=== PATIENT | male | born 1975 | race Caucasian/White ===

== ENCOUNTER 2018-03-19 18:52 | Emergency (ER) | payer OTHER, MEDICAID ==
[~2018-03-19] VITALS: Ht 175.3 cm; Wt 66.4 kg
[~2018-03-19 18:52] MED LIST: DIVA-78 PO; FEXO-58 PO; FLUT16H NASAL; LISI-661 PO; METF-960 PO; OLAN10TA6 PO; PANT40TA25 PO; SIMV-259 PO
[2018-03-19 19:02] VITALS: BP 131/85
[2018-03-19 19:19] LABS: GLUCOSE,POINT OF CARE 119 MG/DL (70-110)
== END 2018-03-19 21:00 | disposition left against medical advice (07) ==
LOC: EMS 18:53
DX: R06.02 Shortness of breath (principal); E11.9 Type 2 diabetes mellitus without complications; F20.9 Schizophrenia, unspecified; F32.9 Major depressive disorder, single episode, unspecified; Z87.891 Personal history of nicotine dependence; Z53.21 Procedure and treatment not carried out due to patient leaving prior to being seen by health care provider

== ENCOUNTER 2018-03-20 03:57 | Emergency (ER) | payer OTHER, MEDICAID ==
[~2018-03-20] VITALS: Ht 170.2 cm; Wt 63.6 kg
[~2018-03-20 03:57] MED LIST changes: -DIVA-78 PO; -LISI-661 PO; -METF-960 PO; -PANT40TA25 PO; -SIMV-259 PO
[2018-03-20 04:12] VITALS: BP 143/78
== END 2018-03-20 04:50 | disposition left against medical advice (07) ==
LOC: EMS 03:58
DX: Z53.21 Procedure and treatment not carried out due to patient leaving prior to being seen by health care provider (principal)

== ENCOUNTER 2018-05-18 22:51 | Emergency (ER) | payer OTHER ==
[~2018-05-18] VITALS: Ht 177.8 cm; Wt 67.7 kg
[2018-05-18 22:53] VITALS: BP 110/69
[2018-05-18] MEDS ORDERED: DIVA-78 PO (23:06)
[2018-05-18] MEDS ORDERED: METF-960 PO (23:06)
[2018-05-18] MEDS ORDERED: ARIP10TA8 PO (23:06)
[2018-05-18 23:08] LABS: GLUCOSE,POINT OF CARE 94 MG/DL (70-110)
== END 2018-05-18 23:35 | disposition home or self-care (01) ==
LOC: EMS 22:51
DX: G47.00 Insomnia, unspecified (principal); E11.9 Type 2 diabetes mellitus without complications; F20.9 Schizophrenia, unspecified; F32.9 Major depressive disorder, single episode, unspecified; Z87.891 Personal history of nicotine dependence; Z79.84 Long term (current) use of oral hypoglycemic drugs

== ENCOUNTER 2019-02-14 12:12 | Inpatient (IN) | payer MEDICARE, MEDICAID ==
[~2019-02-14] VITALS: Ht 167.6 cm; Wt 70.4 kg
[~2019-02-14 12:12] MED LIST changes: +ARIP10TA8 PO; +DIVA-78 PO; -FEXO-58 PO; -FLUT16H NASAL; +METF-960 PO; -OLAN10TA6 PO
[2019-02-14 12:27] VITALS: BP 110/74
[2019-02-14] MEDS ORDERED: FAMO20 PO (12:31)
[2019-02-14] MEDS ORDERED: LORA10TA7 PO (12:31)
[2019-02-14] MEDS ORDERED: DIVA-78 PO (12:31)
[2019-02-14] MEDS ORDERED: OLAN7.5T2 PO (12:31)
[2019-02-14] MEDS ORDERED: LORazepam 2 MG TABLET PO PRN (12:45)
[2019-02-14] MEDS ORDERED: HALOPERIDOL 5 MG TABLET PO PRN (12:45)
[2019-02-14] MEDS ORDERED: ZOLPIDEM TARTRATE 10 MG TABLET PO PRN (12:45)
[2019-02-14] MEDS ORDERED: PNEUMOCOCCAL VACCINE POLYVALENT 0.5 ML VIAL [PPSV23] IM ONE (13:45)
[2019-02-14 13:48] VITALS: BP 125/74
[2019-02-14 13:50] VITALS: BP 125/74
[2019-02-14 16:06] VITALS: BP 120/82
[2019-02-15 02:17] VITALS: BP 108/77
[2019-02-15 08:20] LABS: BASOPHILS % (AUTO) 0.5 % (0.0-2.0); HEMATOCRIT 45.6 % (41-53); HEMOGLOBIN 15.6 g/dL (13.5-17.5); LYMPHOCYTES # (AUTO) 1.3 K/uL (1.0-4.8); LYMPHOCYTES % (AUTO) 27.2 % (22.0-44.0); MEAN CORPUSCULAR HEMOGLOBIN 31.8 pg (26.0-34.0); MEAN CORPUSCULAR HGB CONC 34.2 G/dL (31.0-37.0); MEAN CORPUSCULAR VOLUME 93 fL (80-100); MONOCYTES # (AUTO) 0.3 K/uL (0.1-1.0); MONOCYTES % (AUTO) 5.5 % (2.0-9.0); NEUTROPHILS # (AUTO) 3.3 K/uL (1.8-7.7); NEUTROPHILS % (AUTO) 65.8 % (40.0-70.0); PLATELET COUNT (AUTO) 178 K/uL (150-450); RED BLOOD CELL COUNT(AUTO) 4.91 MIL/uL (4.50-5.90); RED CELL DISTRIBUTION WIDTH 12.1 % (11.5-14.5)
[2019-02-15 08:46] VITALS: BP 104/78
[2019-02-15 08:49] LABS: AMPHET/METH SCREEN,URINE NEGATIVE (NEGATIVE); BARBITURATE SCREEN, URINE NEGATIVE (NEGATIVE); BENZODIAZEPINES SCREEN,URINE NEGATIVE (NEGATIVE); CANNABINOID SCREEN,URINE NEGATIVE (NEGATIVE); COCAINE SCREEN,URINE NEGATIVE (NEGATIVE); METHADONE SCREEN, URINE NEGATIVE (NEGATIVE); OPIATE SCREEN,URINE NEGATIVE (NEGATIVE)
[2019-02-15 08:50] LABS: PHENCYCLIDINE SCREEN,URINE NEGATIVE (NEGATIVE)
[2019-02-15 08:50] LABS: ALANINE AMINOTRANSFERASE 14 U/L (12-78); ALKALINE PHOSPHATASE 51 U/L (46-116); ANION GAP 7 mmol/L (8-16); ASPARTATE AMINOTRANSFERASE 20 U/L (15-37); BILIRUBIN,TOTAL 1.4 mg/dL (0.1-1.0); CALCIUM, TOTAL 9.6 mg/dL (8.8-10.5); CARBON DIOXIDE 31 mmol/L (22-29); CHLORIDE 103 mmol/L (98-107); CHOL/HDL RATIO 4.3 (4.2-7.3); CHOLESTEROL 217 mg/dL (131-200); CREATININE 0.76 mg/dL (0.60-1.30); FREE T4 (FREE THYROXINE) 1.21 ng/dL (0.76-1.46); GLOMERULAR FILTR. RATE CALC > 60 mL/min (>60); GLUCOSE,RANDOM 72 mg/dL (70-110); HDL CHOLESTEROL 51 mg/dL (40-60); LDL CHOL (CALC.) 149 mg/dL (0-130); POTASSIUM 4.4 mmol/L (3.5-5.1); SODIUM SERUM 141 mmol/L (136-145); THYROID STIMULATING HORMONE 2.45 uIU/mL (0.36-3.74); TOTAL PROTEIN, SERUM 6.9 g/dL (6.4-8.2); TRIGLYCERIDES 85 mg/dL (15-150)
[2019-02-15 08:57] LABS: UREA NITROGEN, BLOOD 6 mg/dL (7-18)
[2019-02-15 09:06] LABS: APPEARANCE,URINE CLEAR (CLEAR); BILIRUBIN,URINE NEGATIVE (NEGATIVE); GLUCOSE, URINE (UA) NEGATIVE (NEGATIVE); KETONES,URINE NEGATIVE (NEGATIVE); LEUKOCYTE ESTERASE ,URINE NEGATIVE (NEGATIVE); NITRATE,URINE NEGATIVE (NEGATIVE); OCCULT BLOOD,URINE NEGATIVE (NEGATIVE); PROTEIN,URINE NEGATIVE (NEGATIVE); UROBILINOGEN,URINE 0.2 mg/dL (<=1.0)
[2019-02-15] MEDS ORDERED: DIVALPROEX SODIUM 500 MG DR TABLET PO SCH (12:15)
[2019-02-15] MEDS ORDERED: IBUPROFEN 400 MG TABLET PO PRN (13:30)
[2019-02-15] MEDS ORDERED: ONDANSETRON HCL 4 MG TABLET PO PRN (13:30)
[2019-02-15] MEDS ORDERED: ACETAMINOPHEN 325 MG TABLET PO PRN (13:30)
[2019-02-15] MEDS ORDERED: DOCUSATE SODIUM 100 MG CAPSULE PO PRN (13:30)
[2019-02-15] MEDS ORDERED: LOPERAMIDE HCL 2 MG CAPSULE PO PRN (13:30)
[2019-02-15] MEDS ORDERED: ALBUTEROL SULFATE HFA 90 MCG/PUFF 8 GM INHALER IH PRN (13:30)
[2019-02-15] MEDS ORDERED: MAGNESIUM HYDROXIDE SUSPENSION 30 ML UDCUP PO PRN (13:30)
[2019-02-15] MEDS ORDERED: CloNIDine HCL 0.1 MG TABLET PO PRN (13:30)
[2019-02-15] MEDS ORDERED: PETROLATUM,WHITE 28 GM JELLY TP PRN (13:30)
[2019-02-15] MEDS ORDERED: GuaiFENesin/D-METHORPHAN [SUGAR-FREE] 200-20MG/10 ML SYRUP UDCUP PO PRN (13:30)
[2019-02-15] MEDS ORDERED: NICOTINE 14 MG/24 HOUR PATCH TD PRN (13:30)
[2019-02-15 16:15] VITALS: BP 116/79
[2019-02-15] MEDS: DIVALPROEX SODIUM 500 MG DR TABLET PO SCH (17:05)
[2019-02-15] MEDS: OLANZapine 10 MG TABLET PO SCH (20:31)
[2019-02-16 06:26] VITALS: BP 101/77
[2019-02-16 08:11] VITALS: BP 113/66
[2019-02-16] MEDS: DIVALPROEX SODIUM 500 MG DR TABLET PO SCH ×2 (08:13→16:33)
[2019-02-16] MEDS: LORATADINE 10 MG TABLET PO SCH (08:13)
[2019-02-16 16:00] VITALS: BP 125/75
[2019-02-16] MEDS: OLANZapine 10 MG TABLET PO SCH (20:35)
[2019-02-17 06:15] VITALS: BP 132/78
[2019-02-17] MEDS: DIVALPROEX SODIUM 500 MG DR TABLET PO SCH ×2 (08:09→16:25)
[2019-02-17] MEDS: LORATADINE 10 MG TABLET PO SCH (08:09)
[2019-02-17 08:28] VITALS: BP 111/73
[2019-02-17 16:10] VITALS: BP 109/74
[2019-02-17] MEDS: MAG HYDROX/AL HYDROX/SIMETH ES 30 ML SUSPENSION UDCUP PO PRN (17:44)
[2019-02-17] MEDS: OLANZapine 10 MG TABLET PO SCH (20:05)
[2019-02-18 05:13] VITALS: BP 117/71
[2019-02-18] MEDS: DIVALPROEX SODIUM 500 MG DR TABLET PO SCH ×2 (08:35→16:29)
[2019-02-18] MEDS: LORATADINE 10 MG TABLET PO SCH (08:35)
[2019-02-18 08:47] VITALS: BP 109/67
[2019-02-18 16:07] VITALS: BP 114/86
[2019-02-18] MEDS: OLANZapine 10 MG TABLET PO SCH (20:31)
[2019-02-19 06:28] VITALS: BP 120/81
[2019-02-19 08:11] VITALS: BP 104/77
[2019-02-19] MEDS: DIVALPROEX SODIUM 500 MG DR TABLET PO SCH ×2 (08:31→16:34)
[2019-02-19] MEDS: LORATADINE 10 MG TABLET PO SCH (09:19)
[2019-02-19 16:13] VITALS: BP 115/72
[2019-02-19] MEDS: OLANZapine 10 MG TABLET PO SCH (20:30)
[2019-02-20 05:50] VITALS: BP 112/70
[2019-02-20 08:22] VITALS: BP 112/75
[2019-02-20] MEDS: LORATADINE 10 MG TABLET PO SCH (08:31)
[2019-02-20] MEDS: DIVALPROEX SODIUM 500 MG DR TABLET PO SCH ×2 (08:31→17:07)
[2019-02-20] MEDS ORDERED: SENNA/DOCUSATE SODIUM 8.6-50 MG TABLET PO PRN (12:30)
[2019-02-20 16:18] VITALS: BP 113/68
[2019-02-20] MEDS: OLANZapine 10 MG TABLET PO SCH (20:34)
[2019-02-21 05:45] VITALS: BP 116/74
[2019-02-21 08:11] VITALS: BP 116/77
[2019-02-21] MEDS: DIVALPROEX SODIUM 500 MG DR TABLET PO SCH ×2 (08:20→16:32)
[2019-02-21] MEDS: LORATADINE 10 MG TABLET PO SCH (09:53)
[2019-02-21 16:09] VITALS: BP 102/75
[2019-02-21] MEDS: OLANZapine 10 MG TABLET PO SCH (20:37)
[2019-02-22 06:43] VITALS: BP 117/73
[2019-02-22] MEDS: DIVALPROEX SODIUM 500 MG DR TABLET PO SCH ×2 (08:08→16:37)
[2019-02-22 08:14] VITALS: BP 120/75
[2019-02-22] MEDS: LORATADINE 10 MG TABLET PO SCH (09:16)
[2019-02-22] MEDS ORDERED: OLAN10TA3 PO (10:37)
[2019-02-22] MEDS ORDERED: DIVA-78 PO (10:37)
[2019-02-22] MEDS: MAG HYDROX/AL HYDROX/SIMETH ES 30 ML SUSPENSION UDCUP PO PRN (12:50)
[2019-02-22 16:07] VITALS: BP 116/69
[2019-02-22] MEDS: OLANZapine 10 MG TABLET PO SCH (20:32)
[2019-02-23 06:37] VITALS: BP 124/75
[2019-02-23 08:21] VITALS: BP 106/74
[2019-02-23] MEDS: DIVALPROEX SODIUM 500 MG DR TABLET PO SCH (08:42)
[2019-02-23] MEDS: LORATADINE 10 MG TABLET PO SCH (09:32)
== END 2019-02-23 12:58 | disposition home or self-care (01) | DRG 885 ==
LOC: B2X 12:48
PROC: 3E0234Z Introduction of Serum, Toxoid and Vaccine into Muscle, Percutaneous Approach (ICD-10-PCS; principal; 2019-02-14)
DX: F20.0 Paranoid schizophrenia (principal); Z88.1 Allergy status to other antibiotic agents; K21.9 Gastro-esophageal reflux disease without esophagitis; E11.9 Type 2 diabetes mellitus without complications; E78.5 Hyperlipidemia, unspecified; J30.9 Allergic rhinitis, unspecified; Z23 Encounter for immunization; Z91.010 Allergy to peanuts; Z91.018 Allergy to other foods; Z79.899 Other long term (current) drug therapy
CPT/HCPCS: 83036; 84439; 84443; 90732

== ENCOUNTER 2019-07-07 15:52 | Inpatient (IN) | payer OTHER, MEDICAID ==
[~2019-07-07] VITALS: Ht 172.7 cm; Wt 68.5 kg
[~2019-07-07 15:52] MED LIST changes: -ARIP10TA8 PO; +LORA10TA7 PO; -METF-960 PO; +OLAN10TA3 PO
[2019-07-07 18:49] LABS: EOSINOPHILS % (AUTO) 1.2 % (1.0-6.0); HEMOGLOBIN 14.8 g/dL (13.5-17.5); LYMPHOCYTES # (AUTO) 1.7 K/uL (1.0-4.8); LYMPHOCYTES % (AUTO) 41.5 % (22.0-44.0); MEAN CORPUSCULAR HEMOGLOBIN 31.6 pg (26.0-34.0); MEAN CORPUSCULAR HGB CONC 34.5 G/dL (31.0-37.0); MEAN CORPUSCULAR VOLUME 92 fL (80-100); MONOCYTES # (AUTO) 0.3 K/uL (0.1-1.0); MONOCYTES % (AUTO) 7.3 % (2.0-9.0); NEUTROPHILS # (AUTO) 2.1 K/uL (1.8-7.7); PLATELET COUNT (AUTO) 165 K/uL (150-450); RED BLOOD CELL COUNT(AUTO) 4.69 MIL/uL (4.50-5.90); RED CELL DISTRIBUTION WIDTH 12.5 % (11.5-14.5)
[2019-07-07 18:57] LABS: AMPHET/METH SCREEN,URINE NEGATIVE (NEGATIVE); BARBITURATE SCREEN, URINE NEGATIVE (NEGATIVE); BENZODIAZEPINES SCREEN,URINE NEGATIVE (NEGATIVE); CANNABINOID SCREEN,URINE NEGATIVE (NEGATIVE); COCAINE SCREEN,URINE NEGATIVE (NEGATIVE); METHADONE SCREEN, URINE NEGATIVE (NEGATIVE); OPIATE SCREEN,URINE NEGATIVE (NEGATIVE)
[2019-07-07 19:00] LABS: ANION GAP 7 mmol/L (8-16); CALCIUM, TOTAL 8.7 mg/dL (8.8-10.5); CARBON DIOXIDE 30 mmol/L (22-29); CHLORIDE 103 mmol/L (98-107); CREATININE 0.89 mg/dL (0.60-1.30); GLOMERULAR FILTR. RATE CALC > 60 mL/min (>60); GLUCOSE,RANDOM 100 mg/dL (70-110); SODIUM SERUM 140 mmol/L (136-145); UREA NITROGEN, BLOOD 5 mg/dL (7-18)
[2019-07-07 19:05] LABS: PHENCYCLIDINE SCREEN,URINE NEGATIVE (NEGATIVE)
[2019-07-07 19:06] LABS: ALANINE AMINOTRANSFERASE 18 U/L (12-78); ALBUMIN 3.7 g/dL (3.4-5.0); ALKALINE PHOSPHATASE 52 U/L (46-116); ASPARTATE AMINOTRANSFERASE 10 U/L (15-37); BILIRUBIN,TOTAL 0.5 mg/dL (0.1-1.0); TOTAL PROTEIN, SERUM 6.5 g/dL (6.4-8.2)
[2019-07-07 20:44] LABS: VALPROIC ACID 73 mcg/mL (50-100)
[2019-07-07] MEDS ORDERED: HALOPERIDOL 5 MG TABLET PO PRN (21:00)
[2019-07-07] MEDS ORDERED: ZOLPIDEM TARTRATE 10 MG TABLET PO PRN (21:00)
[2019-07-07] MEDS ORDERED: LORazepam 2 MG TABLET PO PRN (21:00)
[2019-07-08 01:48] VITALS: BP 139/90
[2019-07-08 02:02] VITALS: BP 139/90
[2019-07-08] MEDS ORDERED: INFLUENZA VIRUS VACCINE QVS 2019-20 (3YR+)/PF 60 MCG/0.5 ML SYRINGE IM ONE (03:45)
[2019-07-08] MEDS ORDERED: NICOTINE 14 MG/24 HOUR PATCH TD PRN (08:15)
[2019-07-08] MEDS ORDERED: ACETAMINOPHEN 325 MG TABLET PO PRN (08:15)
[2019-07-08] MEDS ORDERED: MAGNESIUM HYDROXIDE SUSPENSION 30 ML UDCUP PO PRN (08:15)
[2019-07-08] MEDS ORDERED: LOPERAMIDE HCL 2 MG CAPSULE PO PRN (08:15)
[2019-07-08] MEDS ORDERED: MAG HYDROX/AL HYDROX/SIMETH ES 30 ML SUSPENSION UDCUP PO PRN (08:15)
[2019-07-08] MEDS ORDERED: DOCUSATE SODIUM 100 MG CAPSULE PO PRN (08:15)
[2019-07-08] MEDS ORDERED: ALBUTEROL SULFATE HFA 90 MCG/PUFF 8 GM INHALER IH PRN (08:15)
[2019-07-08] MEDS ORDERED: IBUPROFEN 400 MG TABLET PO PRN (08:15)
[2019-07-08] MEDS ORDERED: PETROLATUM,WHITE 28 GM JELLY TP PRN (08:15)
[2019-07-08] MEDS ORDERED: CloNIDine HCL 0.1 MG TABLET PO PRN (08:15)
[2019-07-08] MEDS ORDERED: ONDANSETRON HCL 4 MG TABLET PO PRN (08:15)
[2019-07-08] MEDS ORDERED: GuaiFENesin/D-METHORPHAN [SUGAR-FREE] 200-20MG/10 ML SYRUP UDCUP PO PRN (08:15)
[2019-07-08] MEDS: LORATADINE 10 MG TABLET PO SCH (09:55)
[2019-07-08 10:04] VITALS: BP 126/80
[2019-07-08 10:06] VITALS: BP 126/80
[2019-07-08 10:55] LABS: CHOL/HDL RATIO 3.5 (4.2-7.3)
[2019-07-08] MEDS ORDERED: LORA-575 PO (15:33)
[2019-07-08] MEDS: DIVALPROEX SODIUM 500 MG DR TABLET PO SCH (20:20)
[2019-07-08] MEDS: OLANZapine 7.5 MG TABLET PO SCH (20:20)
[2019-07-08 21:15] VITALS: BP 111/79
[2019-07-09 07:32] LABS: HEMOGLOBIN A1C 4.9 % (4.5-6.2)
[2019-07-09 07:56] LABS: CHOL/HDL RATIO 3.6 (4.2-7.3); THYROID STIMULATING HORMONE 1.33 uIU/mL (0.36-3.74)
[2019-07-09] MEDS: LORATADINE 10 MG TABLET PO SCH (08:28)
[2019-07-09] MEDS: DIVALPROEX SODIUM 500 MG DR TABLET PO SCH ×2 (08:28→20:28)
[2019-07-09 09:30] VITALS: BP 101/70
[2019-07-09 16:35] VITALS: BP 101/70
[2019-07-09] MEDS: OLANZapine 7.5 MG TABLET PO SCH (20:28)
[2019-07-10 09:00] VITALS: BP 132/70
[2019-07-10] MEDS: LORATADINE 10 MG TABLET PO SCH (09:22)
[2019-07-10] MEDS: DIVALPROEX SODIUM 500 MG DR TABLET PO SCH (09:22)
[2019-07-10] MEDS ORDERED: DIVA-78 PO (16:47)
== END 2019-07-10 18:00 | disposition home or self-care (01) | DRG 885 ==
LOC: EMS 15:55 → 3EX 21:00
DX: F20.0 Paranoid schizophrenia (principal); R45.851 Suicidal ideations; D72.819 Decreased white blood cell count, unspecified; E11.9 Type 2 diabetes mellitus without complications; Z91.010 Allergy to peanuts; Z88.8 Allergy status to other drugs, medicaments and biological substances; Z91.018 Allergy to other foods; J30.9 Allergic rhinitis, unspecified; K21.9 Gastro-esophageal reflux disease without esophagitis; Z79.899 Other long term (current) drug therapy; Z87.891 Personal history of nicotine dependence; Z91.5 Personal history of self-harm
CPT/HCPCS: 83036; 84443; G0378; G0480

== ENCOUNTER 2020-02-28 14:31 | Emergency (ER) | payer OTHER ==
[~2020-02-28] VITALS: Ht 177.8 cm; Wt 70.5 kg
[~2020-02-28 14:31] MED LIST changes: +DIVA-112 PO; -DIVA-78 PO; +LORA-575 PO; -LORA10TA7 PO
[2020-02-28] MEDS ORDERED: CETI-450 PO (14:37)
[2020-02-28] MEDS ORDERED: ASEN5TAB6 SL (14:37)
[2020-02-28] MEDS ORDERED: FAMO20 PO (14:37)
[2020-02-28] MEDS ORDERED: PB/HYOSCY/ATR/SCOP/LIDO/MAALOX 55 ML BOTTLE PO ONE (15:30)
[2020-02-28 15:55] VITALS: BP 107/72
[2020-02-28 19:25] LABS: GLUCOSE,POINT OF CARE 106 MG/DL (70-110)
== END 2020-02-28 16:01 | disposition home or self-care (01) ==
LOC: EMS 14:32
DX: K21.9 Gastro-esophageal reflux disease without esophagitis (principal); F32.9 Major depressive disorder, single episode, unspecified; E11.9 Type 2 diabetes mellitus without complications; F20.9 Schizophrenia, unspecified; Z87.891 Personal history of nicotine dependence

== ENCOUNTER 2020-05-26 17:11 | Emergency (ER) | payer OTHER ==
[~2020-05-26] VITALS: Ht 177.8 cm; Wt 70.9 kg
[~2020-05-26 17:11] MED LIST changes: +ASEN5TAB6 SL; +CETI-450 PO; +FAMO20 PO; -LORA-575 PO
[2020-05-26 18:03] LABS: GLUCOSE,POINT OF CARE 92 MG/DL (70-110)
[2020-05-26 20:09] VITALS: BP 122/76
== END 2020-05-26 21:07 | disposition home or self-care (01) ==
LOC: EMS 17:15
DX: F20.9 Schizophrenia, unspecified (principal); F32.9 Major depressive disorder, single episode, unspecified; Z87.891 Personal history of nicotine dependence; E11.9 Type 2 diabetes mellitus without complications

== ENCOUNTER 2020-08-13 16:20 | Inpatient (IN) | payer MEDICARE, MEDICAID ==
[~2020-08-13] VITALS: Ht 172.7 cm; Wt 62.0 kg
[~2020-08-13 16:20] MED LIST changes: -ASEN5TAB6 SL; +ASEN5TAB8 SL
[2020-08-13] MEDS ORDERED: HALOPERIDOL 5 MG TABLET PO ONE (18:30)
[2020-08-13] MEDS ORDERED: LORazepam 1 MG TABLET PO ONE (18:30)
[2020-08-13 18:53] LABS: BASOPHILS % (AUTO) 0.3 % (0.0-2.0); EOSINOPHILS % (AUTO) 0.1 % (1.0-6.0); HEMATOCRIT 45.3 % (41-53); HEMOGLOBIN 15.6 g/dL (13.5-17.5); LYMPHOCYTES # (AUTO) 1.2 K/uL (1.0-4.8); LYMPHOCYTES % (AUTO) 13.5 % (22.0-44.0); MEAN CORPUSCULAR HEMOGLOBIN 31.6 pg (26.0-34.0); MEAN CORPUSCULAR HGB CONC 34.5 G/dL (31.0-37.0); MEAN CORPUSCULAR VOLUME 91 fL (80-100); MONOCYTES # (AUTO) 0.8 K/uL (0.1-1.0); MONOCYTES % (AUTO) 8.3 % (2.0-9.0); NEUTROPHILS # (AUTO) 7.1 K/uL (1.8-7.7); NEUTROPHILS % (AUTO) 77.8 % (40.0-70.0); PLATELET COUNT (AUTO) 197 K/uL (150-450); RED BLOOD CELL COUNT(AUTO) 4.96 MIL/uL (4.50-5.90); RED CELL DISTRIBUTION WIDTH 12.6 % (11.5-14.5)
[2020-08-13 19:02] LABS: ANION GAP 10 mmol/L (8-16); CALCIUM, TOTAL 9.3 mg/dL (8.8-10.5); CARBON DIOXIDE 26 mmol/L (22-29); CHLORIDE 104 mmol/L (98-107); CREATININE 0.84 mg/dL (0.60-1.30); GLOMERULAR FILTR. RATE CALC > 60 mL/min (>60); GLUCOSE,RANDOM 101 mg/dL (70-110); POTASSIUM 3.6 mmol/L (3.5-5.1); SODIUM SERUM 140 mmol/L (136-145); UREA NITROGEN, BLOOD 11 mg/dL (7-18)
[2020-08-13 19:08] LABS: ALANINE AMINOTRANSFERASE 29 U/L (12-78); ALBUMIN 4.2 g/dL (3.4-5.0); ALKALINE PHOSPHATASE 70 U/L (46-116); ASPARTATE AMINOTRANSFERASE 24 U/L (15-37)
[2020-08-13 19:10] LABS: ACETAMINOPHEN < 2 mcg/mL (10-30); VALPROIC ACID < 3 mcg/mL (50-100)
[2020-08-13 19:17] LABS: SALICYLATE < 2.8 mg/dL (2.8-20.0)
[2020-08-13 19:22] LABS: COVID AG,FIA SOURCE NASOPHARYNGEAL
[2020-08-13] MEDS ORDERED: ZOLPIDEM TARTRATE 10 MG TABLET PO PRN (20:15)
[2020-08-13] MEDS ORDERED: LORazepam 2 MG TABLET PO PRN (20:15)
[2020-08-13] MEDS ORDERED: HALOPERIDOL 5 MG TABLET PO PRN (20:15)
[2020-08-13 20:50] VITALS: BP 121/82
[2020-08-13] MEDS ORDERED: INSULIN LISPRO 100 UNITS/ML SQ PRN (23:00)
[2020-08-13] MEDS ORDERED: DEXTROSE 50%-WATER 25 GM/50 ML SYRINGE IVP PRN (23:00)
[2020-08-14 00:42] VITALS: BP 120/70
[2020-08-14 06:54] LABS: GLUCOMETER DEV NAME(LOC) 3E.I 2; GLUCOSE,POINT OF CARE 76 MG/DL (70-110)
[2020-08-14] MEDS ORDERED: IBUPROFEN 400 MG TABLET PO PRN (08:15)
[2020-08-14] MEDS ORDERED: CloNIDine HCL 0.1 MG TABLET PO PRN (08:15)
[2020-08-14] MEDS ORDERED: ACETAMINOPHEN 325 MG TABLET PO PRN (08:15)
[2020-08-14] MEDS ORDERED: NICOTINE 14 MG/24 HOUR PATCH TD PRN (08:15)
[2020-08-14] MEDS ORDERED: PETROLATUM,WHITE 28 GM JELLY TP PRN (08:15)
[2020-08-14] MEDS ORDERED: MAGNESIUM HYDROXIDE SUSPENSION 30 ML UDCUP PO PRN (08:15)
[2020-08-14] MEDS ORDERED: ALBUTEROL SULFATE HFA 90 MCG/PUFF 8 GM INHALER IH PRN (08:15)
[2020-08-14] MEDS ORDERED: ONDANSETRON HCL 4 MG TABLET PO PRN (08:15)
[2020-08-14] MEDS ORDERED: GuaiFENesin/D-METHORPHAN [SUGAR-FREE] 200-20MG/10 ML SYRUP UDCUP PO PRN (08:15)
[2020-08-14] MEDS ORDERED: LOPERAMIDE HCL 2 MG CAPSULE PO PRN (08:15)
[2020-08-14 08:26] LABS: CHOL/HDL RATIO 2.4 (4.2-7.3)
[2020-08-14] MEDS: FAMOTIDINE 20 MG TABLET PO SCH (08:43)
[2020-08-14 08:46] VITALS: BP 118/58
[2020-08-14] MEDS ORDERED: FAMOTIDINE 20 MG TABLET PO SCH (09:00)
[2020-08-14 09:05] VITALS: BP 118/58
[2020-08-14 09:46] VITALS: BP 115/82
[2020-08-14 11:19] LABS: GLUCOMETER DEV NAME(LOC) 3E.I 2; GLUCOSE,POINT OF CARE 72 MG/DL (70-110)
[2020-08-14 16:00] VITALS: BP 115/66
[2020-08-14] MEDS: DIVALPROEX SODIUM 500 MG DR TABLET PO SCH (16:48)
[2020-08-14 17:03] LABS: GLUCOMETER DEV NAME(LOC) 3E.I 2; GLUCOSE,POINT OF CARE 77 MG/DL (70-110)
[2020-08-14] MEDS: MELATONIN 5 MG TABLET PO SCH (20:55)
[2020-08-14] MEDS: OLANZapine 5 MG TABLET PO SCH (20:55)
[2020-08-14 21:11] LABS: GLUCOMETER DEV NAME(LOC) 3E.I 2; GLUCOSE,POINT OF CARE 83 MG/DL (70-110)
[2020-08-15 06:22] LABS: GLUCOMETER DEV NAME(LOC) 3E.I 2; GLUCOSE,POINT OF CARE 79 MG/DL (70-110)
[2020-08-15] MEDS: FAMOTIDINE 20 MG TABLET PO SCH (09:17)
[2020-08-15 13:24] VITALS: BP 105/74
[2020-08-15] MEDS ORDERED: PSEUDOEPHEDRINE HCL 30 MG TABLET PO PRN (13:30)
[2020-08-15] MEDS: MAG HYDROX/AL HYDROX/SIMETH ES 30 ML SUSPENSION UDCUP PO PRN (13:43)
[2020-08-15 16:00] VITALS: BP 114/75
[2020-08-15] MEDS: DIVALPROEX SODIUM 500 MG DR TABLET PO SCH (16:31)
[2020-08-15 17:05] LABS: GLUCOMETER DEV NAME(LOC) 3E.I 2; GLUCOSE,POINT OF CARE 84 MG/DL (70-110)
[2020-08-15] MEDS: MELATONIN 5 MG TABLET PO SCH (20:42)
[2020-08-15] MEDS: OLANZapine 5 MG TABLET PO SCH (20:42)
[2020-08-15 21:21] LABS: GLUCOMETER DEV NAME(LOC) 3E.I 2; GLUCOSE,POINT OF CARE 70 MG/DL (70-110)
[2020-08-16 06:30] LABS: GLUCOMETER DEV NAME(LOC) 3E.I 2; GLUCOSE,POINT OF CARE 73 MG/DL (70-110)
[2020-08-16 08:00] VITALS: BP 126/80
[2020-08-16] MEDS: FAMOTIDINE 20 MG TABLET PO SCH (08:58)
[2020-08-16] MEDS: MAG HYDROX/AL HYDROX/SIMETH ES 30 ML SUSPENSION UDCUP PO PRN (08:59)
[2020-08-16 11:34] LABS: GLUCOMETER DEV NAME(LOC) 3E.I 2; GLUCOSE,POINT OF CARE 63 MG/DL (70-110)
[2020-08-16 14:20] LABS: GLUCOMETER DEV NAME(LOC) 3E.I 2; GLUCOSE,POINT OF CARE 172 MG/DL (70-110)
[2020-08-16] MEDS: DIVALPROEX SODIUM 500 MG DR TABLET PO SCH (17:08)
[2020-08-16 17:33] LABS: GLUCOMETER DEV NAME(LOC) 3E.I 2; GLUCOSE,POINT OF CARE 80 MG/DL (70-110)
[2020-08-16 17:42] VITALS: BP 106/70
[2020-08-16] MEDS: MELATONIN 5 MG TABLET PO SCH (20:57)
[2020-08-16] MEDS: OLANZapine 5 MG TABLET PO SCH (20:57)
[2020-08-16 21:14] LABS: GLUCOMETER DEV NAME(LOC) 3E.I 2; GLUCOSE,POINT OF CARE 93 MG/DL (70-110)
[2020-08-17 05:54] LABS: GLUCOMETER DEV NAME(LOC) 3E.I 2; GLUCOSE,POINT OF CARE 70 MG/DL (70-110)
[2020-08-17] MEDS: FAMOTIDINE 20 MG TABLET PO SCH (09:09)
[2020-08-17] MEDS ORDERED: OLAN5TAB27 PO (09:10)
[2020-08-17] MEDS ORDERED: DIVA-112 PO (09:10)
[2020-08-17] MEDS ORDERED: MELA5TAB3 PO (09:10)
[2020-08-17 09:32] VITALS: BP 105/67
[2020-08-17 11:28] LABS: GLUCOMETER DEV NAME(LOC) 3E.I 2; GLUCOSE,POINT OF CARE 76 MG/DL (70-110)
== END 2020-08-17 14:30 | disposition home or self-care (01) | DRG 885 ==
LOC: EMS 16:20 → 3EI 20:00
DX: F20.0 Paranoid schizophrenia (principal); Z79.899 Other long term (current) drug therapy; Z87.891 Personal history of nicotine dependence; Z91.5 Personal history of self-harm; E11.9 Type 2 diabetes mellitus without complications; F32.9 Major depressive disorder, single episode, unspecified; K21.9 Gastro-esophageal reflux disease without esophagitis; Z20.822 Contact with and (suspected) exposure to COVID-19; Z88.1 Allergy status to other antibiotic agents; Z91.010 Allergy to peanuts
CPT/HCPCS: 83036; 87426; 93005; 99285; A9575; G0480; G0481

== ENCOUNTER 2020-09-16 18:58 | Emergency (ER) | payer OTHER ==
[~2020-09-16] VITALS: Ht 177.8 cm; Wt 68.2 kg
[~2020-09-16 18:58] MED LIST changes: -ASEN5TAB8 SL; -CETI-450 PO; +MELA5TAB3 PO; -OLAN10TA3 PO; +OLAN5TAB27 PO
[2020-09-16 19:03] VITALS: BP 124/70
== END 2020-09-16 21:18 | disposition home or self-care (01) ==
LOC: EMS 18:58
DX: K21.9 Gastro-esophageal reflux disease without esophagitis (principal); F32.9 Major depressive disorder, single episode, unspecified; E11.9 Type 2 diabetes mellitus without complications; F20.9 Schizophrenia, unspecified; Z87.891 Personal history of nicotine dependence; Z88.1 Allergy status to other antibiotic agents; Z91.010 Allergy to peanuts; Z91.018 Allergy to other foods
CPT/HCPCS: 99283

== ENCOUNTER 2020-11-13 11:20 | Inpatient (IN) | payer MEDICARE, MEDICAID ==
[~2020-11-13] VITALS: Ht 172.7 cm; Wt 70.7 kg
[2020-11-13 15:04] LABS: BASOPHILS % (AUTO) 0.6 % (0.0-2.0); EOSINOPHILS % (AUTO) 1.7 % (1.0-6.0); HEMATOCRIT 45.7 % (41-53); HEMOGLOBIN 15.6 g/dL (13.5-17.5); LYMPHOCYTES # (AUTO) 1.1 K/uL (1.0-4.8); LYMPHOCYTES % (AUTO) 18.5 % (22.0-44.0); MEAN CORPUSCULAR HEMOGLOBIN 31.3 pg (26.0-34.0); MEAN CORPUSCULAR HGB CONC 34.2 G/dL (31.0-37.0); MEAN CORPUSCULAR VOLUME 91 fL (80-100); MONOCYTES # (AUTO) 0.3 K/uL (0.1-1.0); MONOCYTES % (AUTO) 4.7 % (2.0-9.0); NEUTROPHILS # (AUTO) 4.5 K/uL (1.8-7.7); NEUTROPHILS % (AUTO) 74.5 % (40.0-70.0); PLATELET COUNT (AUTO) 185 K/uL (150-450); RED BLOOD CELL COUNT(AUTO) 5.01 MIL/uL (4.50-5.90); RED CELL DISTRIBUTION WIDTH 12.7 % (11.5-14.5)
[2020-11-13 15:05] LABS: AMPHET/METH SCREEN,URINE NEGATIVE (NEGATIVE); BARBITURATE SCREEN, URINE NEGATIVE (NEGATIVE); BENZODIAZEPINES SCREEN,URINE NEGATIVE (NEGATIVE); CANNABINOID SCREEN,URINE NEGATIVE (NEGATIVE); COCAINE SCREEN,URINE NEGATIVE (NEGATIVE); METHADONE SCREEN, URINE NEGATIVE (NEGATIVE); OPIATE SCREEN,URINE NEGATIVE (NEGATIVE); PHENCYCLIDINE SCREEN,URINE NEGATIVE (NEGATIVE)
[2020-11-13 15:12] LABS: ANION GAP 9 mmol/L (8-16); CALCIUM, TOTAL 9.2 mg/dL (8.8-10.5); CARBON DIOXIDE 28 mmol/L (22-29); CHLORIDE 102 mmol/L (98-107); CREATININE 0.76 mg/dL (0.60-1.30); GLOMERULAR FILTR. RATE CALC > 60 mL/min (>60); GLUCOSE,RANDOM 92 mg/dL (70-110); POTASSIUM 4.8 mmol/L (3.5-5.1); SODIUM SERUM 139 mmol/L (136-145); UREA NITROGEN, BLOOD 14 mg/dL (7-18)
[2020-11-13 15:18] LABS: ALANINE AMINOTRANSFERASE 22 U/L (12-78); ALBUMIN 4.4 g/dL (3.4-5.0); ALKALINE PHOSPHATASE 83 U/L (46-116); ASPARTATE AMINOTRANSFERASE 15 U/L (15-37); BILIRUBIN,TOTAL 0.6 mg/dL (0.1-1.0); TOTAL PROTEIN, SERUM 6.9 g/dL (6.4-8.2)
[2020-11-13 15:51] LABS: COVID AG,FIA SOURCE NASOPHARYNGEAL
[2020-11-13] MEDS ORDERED: OLANZapine 5 MG TABLET PO ONE ×2 (17:15→21:00)
[2020-11-13] MEDS ORDERED: HALOPERIDOL 5 MG TABLET PO PRN (18:30)
[2020-11-13] MEDS ORDERED: IBUPROFEN 400 MG TABLET PO ONE (18:45)
[2020-11-13 20:41] VITALS: BP 150/90
[2020-11-13] MEDS ORDERED: DIVALPROEX SODIUM 250 MG DR TABLET PO ONE (21:00)
[2020-11-13] MEDS: DIVALPROEX SODIUM 250 MG DR TABLET PO SCH (21:09)
[2020-11-13] MEDS: OLANZapine 5 MG TABLET PO SCH (21:09)
[2020-11-14] MEDS ORDERED: BACITRACIN 28 GM OINTMENT TP PRN (07:00)
[2020-11-14] MEDS ORDERED: IBUPROFEN 600 MG TABLET PO PRN (07:00)
[2020-11-14] MEDS ORDERED: ALBUTEROL SULFATE HFA 90 MCG/PUFF 8 GM INHALER IH PRN (07:00)
[2020-11-14] MEDS ORDERED: ONDANSETRON HCL 4 MG TABLET PO PRN (07:00)
[2020-11-14] MEDS ORDERED: CloNIDine HCL 0.1 MG TABLET PO PRN (07:00)
[2020-11-14] MEDS ORDERED: MAGNESIUM HYDROXIDE SUSPENSION 30 ML UDCUP PO PRN (07:00)
[2020-11-14] MEDS ORDERED: PETROLATUM,WHITE 28 GM JELLY TP PRN (07:00)
[2020-11-14 07:30] LABS: CHOL/HDL RATIO 2.8 (4.2-7.3)
[2020-11-14 08:00] VITALS: BP 122/82
[2020-11-14] MEDS: FAMOTIDINE 20 MG TABLET PO SCH (08:36)
[2020-11-14] MEDS: DIVALPROEX SODIUM 250 MG DR TABLET PO SCH ×2 (08:36→16:20)
[2020-11-14] MEDS: LORazepam 2 MG TABLET PO PRN (08:36)
[2020-11-14 16:21] VITALS: BP 151/90
[2020-11-14] MEDS: OLANZapine 5 MG TABLET PO SCH (20:04)
[2020-11-14] MEDS: MAG HYDROX/AL HYDROX/SIMETH ES 30 ML SUSPENSION UDCUP PO PRN (21:38)
[2020-11-15] MEDS: FAMOTIDINE 20 MG TABLET PO SCH (08:16)
[2020-11-15] MEDS: DIVALPROEX SODIUM 250 MG DR TABLET PO SCH ×2 (08:16→17:03)
[2020-11-15 08:19] VITALS: BP 118/87
[2020-11-15] MEDS: MAG HYDROX/AL HYDROX/SIMETH ES 30 ML SUSPENSION UDCUP PO PRN (15:29)
[2020-11-15 16:00] VITALS: BP 134/84
[2020-11-15] MEDS: OLANZapine 5 MG TABLET PO SCH (20:19)
[2020-11-15] MEDS: ZOLPIDEM TARTRATE 10 MG TABLET PO PRN (20:19)
[2020-11-16] MEDS: DIVALPROEX SODIUM 250 MG DR TABLET PO SCH ×2 (07:45→16:16)
[2020-11-16] MEDS: FAMOTIDINE 20 MG TABLET PO SCH (07:45)
[2020-11-16 08:58] VITALS: BP 129/95
[2020-11-16] MEDS: MAG HYDROX/AL HYDROX/SIMETH ES 30 ML SUSPENSION UDCUP PO PRN (15:46)
[2020-11-16] MEDS: LORazepam 2 MG TABLET PO PRN (16:16)
[2020-11-16 17:08] VITALS: BP 134/88
[2020-11-16] MEDS: OLANZapine 5 MG TABLET PO SCH (20:40)
[2020-11-16] MEDS ORDERED: LORazepam 2 MG/ML VIAL IM ONE (20:45)
[2020-11-16] MEDS ORDERED: DiphenhydrAMINE HCL 50 MG/ML VIAL IM ONE (20:45)
[2020-11-16] MEDS ORDERED: HALOPERIDOL LACTATE 5 MG/ML VIAL IM ONE (20:45)
[2020-11-16] MEDS ORDERED: HALOPERIDOL LACTATE 5 MG/ML VIAL ONE (20:50)
[2020-11-16] MEDS ORDERED: LORazepam 2 MG/ML VIAL ONE (20:50)
[2020-11-16] MEDS ORDERED: DiphenhydrAMINE HCL 50 MG/ML VIAL ONE (20:50)
[2020-11-17] MEDS: FAMOTIDINE 20 MG TABLET PO SCH (12:04)
[2020-11-17] MEDS: DIVALPROEX SODIUM 250 MG DR TABLET PO SCH ×2 (12:04→15:58)
[2020-11-17 16:51] VITALS: BP 137/90
[2020-11-17] MEDS: QUEtiapine FUMARATE 200 MG TABLET PO SCH (20:10)
[2020-11-17] MEDS: DIVALPROEX SODIUM 500 MG DR TABLET PO SCH (20:10)
[2020-11-17] MEDS: ZOLPIDEM TARTRATE 10 MG TABLET PO PRN (20:58)
[2020-11-17] MEDS ORDERED: OLANZapine 5 MG TABLET PO SCH (21:00)
[2020-11-18 08:00] VITALS: BP 117/80
[2020-11-18] MEDS: FAMOTIDINE 20 MG TABLET PO SCH (08:16)
[2020-11-18] MEDS: DIVALPROEX SODIUM 500 MG DR TABLET PO SCH ×2 (08:16→20:05)
[2020-11-18 15:59] LABS: COVID AG,FIA SOURCE NASOPHARYNGEAL
[2020-11-18 18:01] VITALS: BP 124/87
[2020-11-18] MEDS: ACETAMINOPHEN 325 MG TABLET PO PRN (18:35)
[2020-11-18 18:36] VITALS: BP 121/77
[2020-11-18] MEDS: QUEtiapine FUMARATE 200 MG TABLET PO SCH (20:05)
[2020-11-19 02:46] VITALS: BP 117/65
[2020-11-19 08:00] VITALS: BP 120/79
[2020-11-19] MEDS: FAMOTIDINE 20 MG TABLET PO SCH (08:23)
[2020-11-19] MEDS: DIVALPROEX SODIUM 500 MG DR TABLET PO SCH ×2 (08:23→20:15)
[2020-11-19] MEDS: MAG HYDROX/AL HYDROX/SIMETH ES 30 ML SUSPENSION UDCUP PO PRN (13:23)
[2020-11-19] MEDS: ACETAMINOPHEN 325 MG TABLET PO PRN (16:01)
[2020-11-19 17:00] VITALS: BP 126/86
[2020-11-19] MEDS: QUEtiapine FUMARATE 200 MG TABLET PO SCH (20:15)
[2020-11-20 08:00] VITALS: BP 116/82
[2020-11-20] MEDS: DIVALPROEX SODIUM 500 MG DR TABLET PO SCH ×2 (08:27→20:03)
[2020-11-20] MEDS: ACETAMINOPHEN 325 MG TABLET PO PRN ×2 (08:27→12:59)
[2020-11-20] MEDS: FAMOTIDINE 20 MG TABLET PO SCH (08:27)
[2020-11-20 16:28] VITALS: BP 122/79
[2020-11-20] MEDS: MAG HYDROX/AL HYDROX/SIMETH ES 30 ML SUSPENSION UDCUP PO PRN (18:17)
[2020-11-20] MEDS: QUEtiapine FUMARATE 200 MG TABLET PO SCH (20:03)
[2020-11-21] MEDS: FAMOTIDINE 20 MG TABLET PO SCH (07:55)
[2020-11-21] MEDS: DIVALPROEX SODIUM 500 MG DR TABLET PO SCH ×2 (07:56→20:08)
[2020-11-21 08:00] VITALS: BP 124/78
[2020-11-21 16:49] VITALS: BP 129/90
[2020-11-21] MEDS: QUEtiapine FUMARATE 200 MG TABLET PO SCH (20:09)
[2020-11-21] MEDS ORDERED: DIVA-112 PO ×2 (21:00→21:01)
[2020-11-21] MEDS ORDERED: QUET200T PO (21:02)
[2020-11-22 08:00] VITALS: BP 134/87
[2020-11-22] MEDS: FAMOTIDINE 20 MG TABLET PO SCH (08:41)
[2020-11-22] MEDS: DIVALPROEX SODIUM 500 MG DR TABLET PO SCH (08:42)
== END 2020-11-22 12:15 | disposition home or self-care (01) | DRG 885 ==
LOC: EMS 11:28 → 3EC 19:00
PROVIDERS: ADMIT Psychiatry & Neurology Psychiatry; ATTEND Psychiatry & Neurology Psychiatry
DX: F20.0 Paranoid schizophrenia (principal); R73.03 Prediabetes; F41.9 Anxiety disorder, unspecified; G47.00 Insomnia, unspecified; K59.00 Constipation, unspecified; F32.9 Major depressive disorder, single episode, unspecified; F19.10 Other psychoactive substance abuse, uncomplicated; K21.9 Gastro-esophageal reflux disease without esophagitis; Z20.822 Contact with and (suspected) exposure to COVID-19; Z79.899 Other long term (current) drug therapy; Z91.5 Personal history of self-harm; Z88.1 Allergy status to other antibiotic agents; Z91.010 Allergy to peanuts; Z91.018 Allergy to other foods; Z72.0 Tobacco use; Z71.6 Tobacco abuse counseling; Z71.51 Drug abuse counseling and surveillance of drug abuser
CPT/HCPCS: 80053; 80061; 80164; 85025; 87426; 99285; G0480; J1200; J1630; J2060

== ENCOUNTER 2021-02-01 12:36 | Emergency (ER) | payer OTHER ==
[~2021-02-01] VITALS: Ht 172.7 cm; Wt 72.7 kg
[~2021-02-01 12:36] MED LIST changes: -FAMO20 PO; -MELA5TAB3 PO; -OLAN5TAB27 PO; +QUET200T PO
[2021-02-01 12:44] VITALS: BP 115/73
[2021-02-01] MEDS ORDERED: IBUPROFEN 600 MG TABLET PO ONE (13:45)
== END 2021-02-01 14:00 | disposition left against medical advice (07) ==
LOC: EMS 12:36
DX: L84 Corns and callosities (principal); M79.671 Pain in right foot; M79.672 Pain in left foot; E11.9 Type 2 diabetes mellitus without complications; K21.9 Gastro-esophageal reflux disease without esophagitis; F20.9 Schizophrenia, unspecified; F32.9 Major depressive disorder, single episode, unspecified; Z87.891 Personal history of nicotine dependence; Z88.1 Allergy status to other antibiotic agents; Z91.010 Allergy to peanuts; Z91.018 Allergy to other foods
CPT/HCPCS: 82962; 99282

== ENCOUNTER 2021-02-15 12:36 | Emergency (ER) | payer OTHER ==
[~2021-02-15] VITALS: Ht 167.6 cm; Wt 63.6 kg
[2021-02-15 12:40] VITALS: BP 107/74
== END 2021-02-15 13:44 | disposition home or self-care (01) ==
LOC: EMS 12:36
DX: M79.671 Pain in right foot (principal); M79.672 Pain in left foot; F20.9 Schizophrenia, unspecified; F32.9 Major depressive disorder, single episode, unspecified; E11.9 Type 2 diabetes mellitus without complications; K21.9 Gastro-esophageal reflux disease without esophagitis; Z87.891 Personal history of nicotine dependence; Z88.1 Allergy status to other antibiotic agents; Z91.010 Allergy to peanuts; Z91.018 Allergy to other foods
CPT/HCPCS: 82962; 99282

== ENCOUNTER 2021-02-27 23:28 | Emergency (ER) | payer OTHER ==
[~2021-02-27] VITALS: Ht 175.3 cm; Wt 75.5 kg
[2021-02-28 00:07] VITALS: BP 121/75
[2021-02-28] MEDS ORDERED: LURA20TA PO (00:10)
[2021-02-28] MEDS ORDERED: FAMO20 PO (00:10)
[2021-02-28] MEDS ORDERED: CLOTRIMAZOLE 1% 15 GM CREAM TP ONE (02:15)
[2021-02-28 02:31] LABS: AMPHET/METH SCREEN,URINE NEGATIVE (NEGATIVE); BARBITURATE SCREEN, URINE NEGATIVE (NEGATIVE); BENZODIAZEPINES SCREEN,URINE NEGATIVE (NEGATIVE); CANNABINOID SCREEN,URINE NEGATIVE (NEGATIVE); COCAINE SCREEN,URINE NEGATIVE (NEGATIVE); METHADONE SCREEN, URINE NEGATIVE (NEGATIVE); OPIATE SCREEN,URINE NEGATIVE (NEGATIVE)
[2021-02-28 02:35] LABS: APPEARANCE,URINE CLEAR (CLEAR); BILIRUBIN,URINE NEGATIVE (NEGATIVE); GLUCOSE, URINE (UA) NEGATIVE (NEGATIVE); KETONES,URINE NEGATIVE (NEGATIVE); LEUKOCYTE ESTERASE ,URINE NEGATIVE (NEGATIVE); NITRATE,URINE NEGATIVE (NEGATIVE); OCCULT BLOOD,URINE NEGATIVE (NEGATIVE); PH,URINE 6.5 (5.0-8.0); PHENCYCLIDINE SCREEN,URINE NEGATIVE (NEGATIVE); PROTEIN,URINE NEGATIVE (NEGATIVE); UROBILINOGEN,URINE 0.2 mg/dL (<=1.0)
[2021-02-28 02:36] LABS: BASOPHILS % (AUTO) 0.7 % (0.0-2.0); EOSINOPHILS % (AUTO) 4.7 % (1.0-6.0); HEMATOCRIT 41.6 % (41-53); HEMOGLOBIN 14.2 g/dL (13.5-17.5); LYMPHOCYTES # (AUTO) 1.4 K/uL (1.0-4.8); LYMPHOCYTES % (AUTO) 26.4 % (22.0-44.0); MEAN CORPUSCULAR HEMOGLOBIN 31.7 pg (26.0-34.0); MEAN CORPUSCULAR VOLUME 93 fL (80-100); MONOCYTES # (AUTO) 0.5 K/uL (0.1-1.0); MONOCYTES % (AUTO) 8.9 % (2.0-9.0); NEUTROPHILS # (AUTO) 3.1 K/uL (1.8-7.7); NEUTROPHILS % (AUTO) 59.3 % (40.0-70.0); PLATELET COUNT (AUTO) 180 K/uL (150-450); RED BLOOD CELL COUNT(AUTO) 4.47 MIL/uL (4.50-5.90); RED CELL DISTRIBUTION WIDTH 13.5 % (11.5-14.5)
[2021-02-28 02:43] LABS: ANION GAP 8 mmol/L (8-16); CALCIUM, TOTAL 8.5 mg/dL (8.8-10.5); CARBON DIOXIDE 30 mmol/L (22-29); CHLORIDE 106 mmol/L (98-107); CREATININE 0.68 mg/dL (0.60-1.30); GLOMERULAR FILTR. RATE CALC > 60 mL/min (>60); GLUCOSE,RANDOM 95 mg/dL (70-110); SODIUM SERUM 144 mmol/L (136-145); UREA NITROGEN, BLOOD 8 mg/dL (7-18)
[2021-02-28 02:53] LABS: BACTERIA,URINE Rare /HPF (None Seen); RBC,URINE 0-2 /HPF (0-2); WBC,URINE 0-2 /HPF (0-5)
== END 2021-02-28 03:20 | disposition home or self-care (01) ==
LOC: EMS 23:29
DX: R42 Dizziness and giddiness (principal); B35.3 Tinea pedis; E11.9 Type 2 diabetes mellitus without complications; K21.9 Gastro-esophageal reflux disease without esophagitis; F32.9 Major depressive disorder, single episode, unspecified; F20.9 Schizophrenia, unspecified; Z87.891 Personal history of nicotine dependence; Z88.0 Allergy status to penicillin; Z91.010 Allergy to peanuts; Z91.018 Allergy to other foods
CPT/HCPCS: 36415; 80048; 80307; 81001; 84484; 85025; 93005; 99284; G0480; 99283

== ENCOUNTER 2021-05-18 17:37 | Emergency (ER) | payer OTHER ==
[~2021-05-18] VITALS: Ht 177.8 cm; Wt 73.6 kg
[~2021-05-18 17:37] MED LIST changes: +FAMO20 PO; +LURA20TA PO
[2021-05-18 18:47] LABS: BASOPHILS % (AUTO) 1.1 % (0.0-2.0); EOSINOPHILS % (AUTO) 2.2 % (1.0-6.0); HEMATOCRIT 45.9 % (41-53); HEMOGLOBIN 15.8 g/dL (13.5-17.5); LYMPHOCYTES # (AUTO) 1.5 K/uL (1.0-4.8); LYMPHOCYTES % (AUTO) 28.8 % (22.0-44.0); MEAN CORPUSCULAR HEMOGLOBIN 31.2 pg (26.0-34.0); MEAN CORPUSCULAR HGB CONC 34.4 G/dL (31.0-37.0); MEAN CORPUSCULAR VOLUME 91 fL (80-100); MONOCYTES # (AUTO) 0.3 K/uL (0.1-1.0); MONOCYTES % (AUTO) 5.7 % (2.0-9.0); NEUTROPHILS # (AUTO) 3.1 K/uL (1.8-7.7); NEUTROPHILS % (AUTO) 62.2 % (40.0-70.0); PLATELET COUNT (AUTO) 196 K/uL (150-450); RED BLOOD CELL COUNT(AUTO) 5.05 MIL/uL (4.50-5.90); RED CELL DISTRIBUTION WIDTH 11.7 % (11.5-14.5)
[2021-05-18 18:58] LABS: ANION GAP 4 mmol/L (8-16); CALCIUM, TOTAL 9.1 mg/dL (8.8-10.5); CARBON DIOXIDE 32 mmol/L (22-29); CHLORIDE 106 mmol/L (98-107); CREATININE 0.97 mg/dL (0.60-1.30); GLOMERULAR FILTR. RATE CALC > 60 mL/min (>60); GLUCOSE,RANDOM 87 mg/dL (70-110); POTASSIUM 4.3 mmol/L (3.5-5.1); SODIUM SERUM 142 mmol/L (136-145); UREA NITROGEN, BLOOD 10 mg/dL (7-18)
[2021-05-18 19:04] LABS: ALANINE AMINOTRANSFERASE 20 U/L (12-78); ALBUMIN 4.1 g/dL (3.4-5.0); ALKALINE PHOSPHATASE 67 U/L (46-116); ASPARTATE AMINOTRANSFERASE 11 U/L (15-37); BILIRUBIN,TOTAL 0.6 mg/dL (0.1-1.0); LIPASE 130 U/L (73-393); TOTAL PROTEIN, SERUM 7.2 g/dL (6.4-8.2)
[2021-05-18] MEDS ORDERED: PB/HYOSCY/ATR/SCOP/LIDO/MAALOX 55 ML BOTTLE PO ONE (19:30)
[2021-05-18] MEDS ORDERED: PANTOPRAZOLE SODIUM 40 MG DR TABLET PO ONE (19:30)
[2021-05-18 21:30] VITALS: BP 124/83
[2021-05-18 21:46] LABS: APPEARANCE,URINE CLEAR (CLEAR); BILIRUBIN,URINE NEGATIVE (NEGATIVE); GLUCOSE, URINE (UA) NEGATIVE (NEGATIVE); KETONES,URINE NEGATIVE (NEGATIVE); LEUKOCYTE ESTERASE ,URINE NEGATIVE (NEGATIVE); NITRATE,URINE NEGATIVE (NEGATIVE); OCCULT BLOOD,URINE NEGATIVE (NEGATIVE); PH,URINE 6.5 (5.0-8.0); PROTEIN,URINE NEGATIVE (NEGATIVE); UROBILINOGEN,URINE 0.2 mg/dL (<=1.0)
== END 2021-05-18 22:17 | disposition home or self-care (01) ==
LOC: EMS 17:44
DX: K27.9 Peptic ulcer, site unspecified, unspecified as acute or chronic, without hemorrhage or perforation (principal); F32.A Depression, unspecified; E11.9 Type 2 diabetes mellitus without complications; K21.9 Gastro-esophageal reflux disease without esophagitis; F20.9 Schizophrenia, unspecified
CPT/HCPCS: 80053; 81003; 83690; 84484; 85025; 93005; 99284

== ENCOUNTER 2021-10-16 02:41 | Emergency (ER) | payer OTHER ==
[~2021-10-16] VITALS: Ht 177.8 cm; Wt 75.0 kg
[2021-10-16] MEDS ORDERED: IBUPROFEN 600 MG TABLET PO ONE (03:00)
[2021-10-16 03:15] VITALS: BP 125/78
== END 2021-10-16 03:53 | disposition home or self-care (01) ==
LOC: EMS 02:42
DX: F20.9 Schizophrenia, unspecified (principal); M79.644 Pain in right finger(s); F32.A Depression, unspecified; E11.9 Type 2 diabetes mellitus without complications; F22 Delusional disorders; Z87.19 Personal history of other diseases of the digestive system; Z86.16 Personal history of COVID-19; Z88.1 Allergy status to other antibiotic agents; Z91.010 Allergy to peanuts; Z91.014 Allergy to mammalian meats
CPT/HCPCS: 99282; Z7502; Z7610

== ENCOUNTER 2021-10-24 07:14 | Inpatient (IN) | payer MEDICARE, MEDICAID ==
[~2021-10-24] VITALS: Ht 177.8 cm; Wt 68.1 kg
[2021-10-24 08:09] LABS: BASOPHILS % (AUTO) 0.9 % (0.0-2.0); EOSINOPHILS % (AUTO) 3.2 % (1.0-6.0); HEMATOCRIT 41.3 % (41-53); HEMOGLOBIN 14.2 g/dL (13.5-17.5); LYMPHOCYTES # (AUTO) 1.5 K/uL (1.0-4.8); LYMPHOCYTES % (AUTO) 30.1 % (22.0-44.0); MEAN CORPUSCULAR HEMOGLOBIN 31.3 pg (26.0-34.0); MEAN CORPUSCULAR HGB CONC 34.3 G/dL (31.0-37.0); MEAN CORPUSCULAR VOLUME 91 fL (80-100); MONOCYTES # (AUTO) 0.4 K/uL (0.1-1.0); MONOCYTES % (AUTO) 7.8 % (2.0-9.0); NEUTROPHILS # (AUTO) 2.8 K/uL (1.8-7.7); PLATELET COUNT (AUTO) 202 K/uL (150-450); RED BLOOD CELL COUNT(AUTO) 4.52 MIL/uL (4.50-5.90); RED CELL DISTRIBUTION WIDTH 12.9 % (11.5-14.5)
[2021-10-24 08:11] LABS: ANION GAP 5 mmol/L (8-16); CALCIUM, TOTAL 8.9 mg/dL (8.8-10.5); CARBON DIOXIDE 30 mmol/L (22-29); CHLORIDE 104 mmol/L (98-107); CREATININE 0.78 mg/dL (0.60-1.30); GLOMERULAR FILTR. RATE CALC > 60 mL/min (>60); GLUCOSE,RANDOM 96 mg/dL (70-110); POTASSIUM 3.7 mmol/L (3.5-5.1); SODIUM SERUM 139 mmol/L (136-145); UREA NITROGEN, BLOOD 14 mg/dL (7-18)
[2021-10-24 08:24] LABS: ALANINE AMINOTRANSFERASE 29 U/L (12-78); ALKALINE PHOSPHATASE 65 U/L (46-116); ASPARTATE AMINOTRANSFERASE 20 U/L (15-37); BILIRUBIN,TOTAL 0.5 mg/dL (0.1-1.0); TOTAL PROTEIN, SERUM 6.8 g/dL (6.4-8.2)
[2021-10-24 08:25] LABS: VALPROIC ACID < 3 mcg/mL (50-100)
[2021-10-24 08:36] LABS: GLUCOMETER DEV NAME(LOC) ERT.5; GLUCOSE,POINT OF CARE 91 MG/DL (70-110)
[2021-10-24] MEDS ORDERED: HALOPERIDOL 5 MG TABLET PO PRN (09:00)
[2021-10-24] MEDS ORDERED: ZOLPIDEM TARTRATE 10 MG TABLET PO PRN (09:00)
[2021-10-24 09:31] LABS: APPEARANCE,URINE CLEAR (CLEAR); BILIRUBIN,URINE NEGATIVE (NEGATIVE); GLUCOSE, URINE (UA) NEGATIVE (NEGATIVE); KETONES,URINE NEGATIVE (NEGATIVE); LEUKOCYTE ESTERASE ,URINE NEGATIVE (NEGATIVE); NITRATE,URINE NEGATIVE (NEGATIVE); OCCULT BLOOD,URINE NEGATIVE (NEGATIVE); PH,URINE 5.5 (5.0-8.0); PROTEIN,URINE NEGATIVE (NEGATIVE); SPECIFIC GRAVITIY, URINE 1.009 (1.003-1.030); UROBILINOGEN,URINE <=1.0 mg/dL (<=1.0)
[2021-10-24 10:25] LABS: COVID AG,FIA SOURCE NASAL SWAB
[2021-10-24 12:47] LABS: AMPHET/METH SCREEN,URINE NEGATIVE (NEGATIVE); BARBITURATE SCREEN, URINE NEGATIVE (NEGATIVE); BENZODIAZEPINES SCREEN,URINE NEGATIVE (NEGATIVE); CANNABINOID SCREEN,URINE NEGATIVE (NEGATIVE); COCAINE SCREEN,URINE NEGATIVE (NEGATIVE); METHADONE SCREEN, URINE NEGATIVE (NEGATIVE); OPIATE SCREEN,URINE NEGATIVE (NEGATIVE); PHENCYCLIDINE SCREEN,URINE NEGATIVE (NEGATIVE)
[2021-10-24 13:35] VITALS: BP 137/65
[2021-10-24] MEDS ORDERED: PETROLATUM,WHITE 28 GM JELLY TP PRN (13:45)
[2021-10-24] MEDS ORDERED: ONDANSETRON HCL 4 MG TABLET PO PRN (13:45)
[2021-10-24] MEDS ORDERED: NICOTINE 14 MG/24 HOUR PATCH TD PRN (13:45)
[2021-10-24] MEDS ORDERED: ALBUTEROL SULFATE HFA 90 MCG/PUFF 8 GM INHALER IH PRN (13:45)
[2021-10-24] MEDS ORDERED: CloNIDine HCL 0.1 MG TABLET PO PRN (13:45)
[2021-10-24] MEDS ORDERED: MAGNESIUM HYDROXIDE SUSPENSION 30 ML UDCUP PO PRN (13:45)
[2021-10-24] MEDS ORDERED: GuaiFENesin/D-METHORPHAN [SUGAR-FREE] 200-20MG/10 ML SYRUP UDCUP PO PRN (13:45)
[2021-10-24 14:01] LABS: GLUCOMETER DEV NAME(LOC) BV2S.; GLUCOSE,POINT OF CARE 88 MG/DL (70-110)
[2021-10-24 16:11] VITALS: BP 126/82
[2021-10-24] MEDS: FAMOTIDINE 20 MG TABLET PO SCH (17:00)
[2021-10-24] MEDS: LORazepam 2 MG TABLET PO PRN (19:12)
[2021-10-24] MEDS: DIVALPROEX SODIUM 500 MG DR TABLET PO SCH (20:19)
[2021-10-25 00:59] VITALS: BP 126/82
[2021-10-25 08:17] VITALS: BP 119/82
[2021-10-25] MEDS: DIVALPROEX SODIUM 500 MG DR TABLET PO SCH ×2 (08:45→20:10)
[2021-10-25] MEDS: FAMOTIDINE 20 MG TABLET PO SCH (08:46)
[2021-10-25] MEDS ORDERED: FLUTICASONE PROPIONATE 50 MCG/SPRAY 16 GM NASAL SPRAY NASAL PRN (09:45)
[2021-10-25] MEDS ORDERED: FAMOTIDINE 20 MG TABLET PO SCH (11:00)
[2021-10-25] MEDS: QUEtiapine FUMARATE 25 MG TABLET PO SCH ×2 (14:08→16:05)
[2021-10-25 15:56] VITALS: BP 115/72
[2021-10-25] MEDS: IBUPROFEN 400 MG TABLET PO PRN (15:56)
[2021-10-25 16:10] VITALS: BP 115/72
[2021-10-26 01:09] VITALS: BP 116/85
[2021-10-26] MEDS: LORazepam 2 MG TABLET PO PRN ×2 (01:14→20:08)
[2021-10-26] MEDS: IBUPROFEN 400 MG TABLET PO PRN (01:14)
[2021-10-26 08:20] VITALS: BP 125/82
[2021-10-26] MEDS: DIVALPROEX SODIUM 500 MG DR TABLET PO SCH ×2 (08:21→20:04)
[2021-10-26] MEDS: QUEtiapine FUMARATE 25 MG TABLET PO SCH ×3 (08:21→20:03)
[2021-10-26] MEDS: FAMOTIDINE 20 MG TABLET PO SCH (11:09)
[2021-10-26 16:20] VITALS: BP 110/83
[2021-10-27 06:19] VITALS: BP 136/90
[2021-10-27] MEDS: ACETAMINOPHEN 325 MG TABLET PO PRN (06:57)
[2021-10-27] MEDS: QUEtiapine FUMARATE 25 MG TABLET PO SCH (08:05)
[2021-10-27 08:45] VITALS: BP 136/89
[2021-10-27] MEDS: FAMOTIDINE 20 MG TABLET PO SCH (11:13)
[2021-10-27 16:24] VITALS: BP 120/90
[2021-10-27] MEDS: DIVALPROEX SODIUM 500 MG DR TABLET PO SCH ×2 (16:30→20:17)
[2021-10-27] MEDS: QUEtiapine FUMARATE 100 MG TABLET PO SCH (20:17)
[2021-10-27 20:45] LABS: GLUCOMETER DEV NAME(LOC) BV2S.; GLUCOSE,POINT OF CARE 363 MG/DL (70-110)
[2021-10-28 00:57] VITALS: BP 124/83
[2021-10-28] MEDS: QUEtiapine FUMARATE 100 MG TABLET PO SCH ×2 (08:51→20:24)
[2021-10-28] MEDS: DIVALPROEX SODIUM 500 MG DR TABLET PO SCH ×3 (08:51→20:24)
[2021-10-28 09:07] VITALS: BP 121/72
[2021-10-28] MEDS: FAMOTIDINE 20 MG TABLET PO SCH (11:00)
[2021-10-28] MEDS: IBUPROFEN 400 MG TABLET PO PRN (13:06)
[2021-10-28 16:11] VITALS: BP 132/88
[2021-10-28] MEDS: LORazepam 2 MG TABLET PO PRN (20:23)
[2021-10-29 00:19] VITALS: BP 139/77
[2021-10-29 08:31] VITALS: BP 114/85
[2021-10-29 08:31] LABS: GLUCOMETER DEV NAME(LOC) POC.BV
[2021-10-29] MEDS: QUEtiapine FUMARATE 100 MG TABLET PO SCH ×2 (08:36→20:26)
[2021-10-29] MEDS: DIVALPROEX SODIUM 500 MG DR TABLET PO SCH ×3 (08:36→20:26)
[2021-10-29] MEDS: FAMOTIDINE 20 MG TABLET PO SCH (11:11)
[2021-10-29] MEDS: LORazepam 2 MG TABLET PO PRN (20:26)
[2021-10-30 00:17] VITALS: BP 116/78
[2021-10-30 08:17] VITALS: BP 119/79
[2021-10-30] MEDS: DIVALPROEX SODIUM 500 MG DR TABLET PO SCH ×3 (08:27→20:23)
[2021-10-30] MEDS: QUEtiapine FUMARATE 100 MG TABLET PO SCH ×2 (08:27→20:23)
[2021-10-30] MEDS: FAMOTIDINE 20 MG TABLET PO SCH (11:09)
[2021-10-30 16:10] VITALS: BP 120/72
[2021-10-30] MEDS: LORazepam 2 MG TABLET PO PRN (20:33)
[2021-10-31 00:51] VITALS: BP 118/76
[2021-10-31] MEDS: DIVALPROEX SODIUM 500 MG DR TABLET PO SCH ×3 (08:05→20:17)
[2021-10-31] MEDS: QUEtiapine FUMARATE 100 MG TABLET PO SCH ×2 (08:05→20:17)
[2021-10-31] MEDS: IBUPROFEN 400 MG TABLET PO PRN (08:05)
[2021-10-31 08:35] VITALS: BP 114/77
[2021-10-31] MEDS: FAMOTIDINE 20 MG TABLET PO SCH (11:05)
[2021-10-31 16:11] VITALS: BP 130/83
[2021-10-31] MEDS: LORazepam 2 MG TABLET PO PRN (20:17)
[2021-11-01 01:17] VITALS: BP 128/81
[2021-11-01 08:17] VITALS: BP 128/86
[2021-11-01] MEDS: DIVALPROEX SODIUM 500 MG DR TABLET PO SCH ×3 (08:21→20:54)
[2021-11-01] MEDS: QUEtiapine FUMARATE 100 MG TABLET PO SCH ×3 (08:21→20:54)
[2021-11-01] MEDS: FAMOTIDINE 20 MG TABLET PO SCH (11:00)
[2021-11-01 16:14] VITALS: BP 125/83
[2021-11-01] MEDS: MAG HYDROX/AL HYDROX/SIMETH ES 30 ML SUSPENSION UDCUP PO PRN (19:49)
[2021-11-02 01:39] VITALS: BP 125/93
[2021-11-02 08:11] VITALS: BP 132/89
[2021-11-02] MEDS: QUEtiapine FUMARATE 100 MG TABLET PO SCH ×2 (09:18→20:31)
[2021-11-02] MEDS: DIVALPROEX SODIUM 500 MG DR TABLET PO SCH ×3 (09:18→20:31)
[2021-11-02] MEDS: LORazepam 2 MG TABLET PO PRN ×2 (10:02→20:40)
[2021-11-02] MEDS: FAMOTIDINE 20 MG TABLET PO SCH (11:06)
[2021-11-03 01:00] VITALS: BP 128/82
[2021-11-03 08:26] VITALS: BP_SYST 126
[2021-11-03] MEDS: QUEtiapine FUMARATE 100 MG TABLET PO SCH ×2 (08:55→21:02)
[2021-11-03] MEDS: DIVALPROEX SODIUM 500 MG DR TABLET PO SCH ×3 (08:55→21:02)
[2021-11-03] MEDS: FAMOTIDINE 20 MG TABLET PO SCH (10:48)
[2021-11-03 16:24] VITALS: BP 114/87
[2021-11-03] MEDS: IBUPROFEN 400 MG TABLET PO PRN (21:03)
[2021-11-04 06:05] VITALS: BP 116/80
[2021-11-04 08:25] VITALS: BP 125/78
[2021-11-04] MEDS: DIVALPROEX SODIUM 500 MG DR TABLET PO SCH ×3 (09:09→20:48)
[2021-11-04] MEDS: QUEtiapine FUMARATE 100 MG TABLET PO SCH ×2 (09:10→20:48)
[2021-11-04] MEDS: FAMOTIDINE 20 MG TABLET PO SCH (11:33)
[2021-11-04 16:17] VITALS: BP 131/84
[2021-11-04] MEDS: MAG HYDROX/AL HYDROX/SIMETH ES 30 ML SUSPENSION UDCUP PO PRN (17:16)
[2021-11-04] MEDS: ACETAMINOPHEN 325 MG TABLET PO PRN (17:45)
[2021-11-04] MEDS: LORazepam 2 MG TABLET PO PRN (20:48)
[2021-11-05 06:17] VITALS: BP 112/78
[2021-11-05 06:51] LABS: GLUCOMETER DEV NAME(LOC) POC.BV
[2021-11-05 08:10] VITALS: BP 133/84
[2021-11-05] MEDS: DIVALPROEX SODIUM 500 MG DR TABLET PO SCH ×3 (08:33→20:47)
[2021-11-05] MEDS: QUEtiapine FUMARATE 100 MG TABLET PO SCH (08:34)
[2021-11-05] MEDS: FAMOTIDINE 20 MG TABLET PO SCH (11:28)
[2021-11-05] MEDS: ACETAMINOPHEN 325 MG TABLET PO PRN (12:15)
[2021-11-05] MEDS: MAG HYDROX/AL HYDROX/SIMETH ES 30 ML SUSPENSION UDCUP PO PRN ×3 (13:55→18:57)
[2021-11-05 16:23] VITALS: BP 124/89
[2021-11-05] MEDS: QUEtiapine FUMARATE 200 MG TABLET PO SCH (20:48)
[2021-11-06 02:10] VITALS: BP 121/61
[2021-11-06] MEDS: DIVALPROEX SODIUM 500 MG DR TABLET PO SCH ×2 (08:21→16:42)
[2021-11-06] MEDS: QUEtiapine FUMARATE 200 MG TABLET PO SCH ×2 (08:21→20:11)
[2021-11-06 08:45] VITALS: BP 130/91
[2021-11-06] MEDS ORDERED: FAMOTIDINE 20 MG TABLET PO SCH (11:00)
[2021-11-06] MEDS: MAG HYDROX/AL HYDROX/SIMETH ES 30 ML SUSPENSION UDCUP PO PRN (12:16)
[2021-11-06] MEDS ORDERED: DIVA-112 PO ×2 (16:06)
[2021-11-06] MEDS ORDERED: QUET200T30 PO (16:06)
[2021-11-06 16:17] VITALS: BP 119/78
[2021-11-06] MEDS ORDERED: DIVALPROEX SODIUM 500 MG DR TABLET PO SCH (21:00)
[2021-11-07 00:20] VITALS: BP 121/68
[2021-11-07] MEDS: DIVALPROEX SODIUM 500 MG DR TABLET PO SCH (08:03)
[2021-11-07] MEDS: QUEtiapine FUMARATE 200 MG TABLET PO SCH (08:03)
[2021-11-07 08:23] VITALS: BP 135/97
== END 2021-11-07 09:00 | disposition home or self-care (01) | DRG 885 ==
LOC: EMS 07:17 → B2S 10:30
PROVIDERS: ADMIT Psychiatry & Neurology Child & Adolescent Psychiatry; ATTEND Psychiatry & Neurology Child & Adolescent Psychiatry
DX: F20.0 Paranoid schizophrenia (principal); R45.851 Suicidal ideations; Z20.822 Contact with and (suspected) exposure to COVID-19; E11.9 Type 2 diabetes mellitus without complications; E66.9 Obesity, unspecified; E87.6 Hypokalemia; F15.10 Other stimulant abuse, uncomplicated; F32.A Depression, unspecified; K21.9 Gastro-esophageal reflux disease without esophagitis; Z91.14 Patient's other noncompliance with medication regimen; Z88.8 Allergy status to other drugs, medicaments and biological substances; Z91.010 Allergy to peanuts; Z68.21 Body mass index [BMI] 21.0-21.9, adult
CPT/HCPCS: 80053; 80164; 81003; 82962; 83036; 85025; 99285; G0480; J3535; Q0162

== ENCOUNTER 2021-11-14 21:20 | Emergency (ER) | payer MEDICARE, OTHER ==
[~2021-11-14] VITALS: Ht 175.3 cm; Wt 72.7 kg
[~2021-11-14 21:20] MED LIST changes: -FAMO20 PO; -LURA20TA PO; -QUET200T PO; +QUET200T30 PO
[2021-11-14 22:20] VITALS: BP 146/73
[2021-11-14 22:59] LABS: BASOPHILS % (AUTO) 0.6 % (0.0-2.0); EOSINOPHILS % (AUTO) 0.1 % (1.0-6.0); HEMATOCRIT 46.9 % (41-53); HEMOGLOBIN 15.8 g/dL (13.5-17.5); LYMPHOCYTES # (AUTO) 0.8 K/uL (1.0-4.8); MEAN CORPUSCULAR HEMOGLOBIN 31.2 pg (26.0-34.0); MEAN CORPUSCULAR HGB CONC 33.8 G/dL (31.0-37.0); MEAN CORPUSCULAR VOLUME 92 fL (80-100); MONOCYTES # (AUTO) 0.5 K/uL (0.1-1.0); MONOCYTES % (AUTO) 5.3 % (2.0-9.0); NEUTROPHILS # (AUTO) 8.3 K/uL (1.8-7.7); PLATELET COUNT (AUTO) 166 K/uL (150-450); RED BLOOD CELL COUNT(AUTO) 5.08 MIL/uL (4.50-5.90); RED CELL DISTRIBUTION WIDTH 12.6 % (11.5-14.5)
[2021-11-14 23:16] LABS: ALANINE AMINOTRANSFERASE 14 U/L (12-78); ALKALINE PHOSPHATASE 53 U/L (46-116); ANION GAP 5 mmol/L (8-16); ASPARTATE AMINOTRANSFERASE 8 U/L (15-37); BILIRUBIN,TOTAL 0.8 mg/dL (0.1-1.0); CARBON DIOXIDE 31 mmol/L (22-29); CHLORIDE 101 mmol/L (98-107); CREATININE 0.89 mg/dL (0.60-1.30); GLOMERULAR FILTR. RATE CALC > 60 mL/min (>60); GLUCOSE,RANDOM 174 mg/dL (70-110); POTASSIUM 4.3 mmol/L (3.5-5.1); SODIUM SERUM 137 mmol/L (136-145); UREA NITROGEN, BLOOD 13 mg/dL (7-18); VALPROIC ACID 68 mcg/mL (50-100)
[2021-11-15 00:24] LABS: COVID AG,FIA SOURCE NASAL SWAB
== END 2021-11-15 02:33 | disposition home or self-care (01) ==
LOC: EMS 21:44
DX: F20.0 Paranoid schizophrenia (principal); K59.00 Constipation, unspecified; R45.851 Suicidal ideations; E11.9 Type 2 diabetes mellitus without complications; K21.9 Gastro-esophageal reflux disease without esophagitis; Z20.822 Contact with and (suspected) exposure to COVID-19; Z91.010 Allergy to peanuts; Z91.018 Allergy to other foods; Z88.1 Allergy status to other antibiotic agents
CPT/HCPCS: 36415; 80053; 80164; 82962; 85025; 87426; 99284; G0480

== ENCOUNTER 2022-01-31 10:47 | Emergency (ER) | payer OTHER ==
[~2022-01-31] VITALS: Ht 177.8 cm; Wt 77.3 kg
[2022-01-31] MEDS ORDERED: TRAZ-252 PO (12:35)
[2022-01-31] MEDS ORDERED: FAMO20 PO (12:35)
[2022-01-31 12:38] LABS: BASOPHILS % (AUTO) 0.5 % (0.0-2.0); EOSINOPHILS % (AUTO) 1.9 % (1.0-6.0); HEMATOCRIT 45.9 % (41-53); HEMOGLOBIN 15.6 g/dL (13.5-17.5); LYMPHOCYTES # (AUTO) 1.1 K/uL (1.0-4.8); LYMPHOCYTES % (AUTO) 19.8 % (22.0-44.0); MEAN CORPUSCULAR HEMOGLOBIN 31.1 pg (26.0-34.0); MEAN CORPUSCULAR VOLUME 91 fL (80-100); MONOCYTES # (AUTO) 0.4 K/uL (0.1-1.0); MONOCYTES % (AUTO) 7.3 % (2.0-9.0); NEUTROPHILS # (AUTO) 3.8 K/uL (1.8-7.7); NEUTROPHILS % (AUTO) 70.5 % (40.0-70.0); PLATELET COUNT (AUTO) 172 K/uL (150-450); RED BLOOD CELL COUNT(AUTO) 5.03 MIL/uL (4.50-5.90); RED CELL DISTRIBUTION WIDTH 12.7 % (11.5-14.5)
[2022-01-31 12:52] LABS: ANION GAP 7 mmol/L (8-16); CALCIUM, TOTAL 8.9 mg/dL (8.8-10.5); CARBON DIOXIDE 30 mmol/L (22-29); CHLORIDE 103 mmol/L (98-107); CREATININE 0.74 mg/dL (0.60-1.30); GLUCOSE,RANDOM 94 mg/dL (70-110); POTASSIUM 4.4 mmol/L (3.5-5.1); SODIUM SERUM 140 mmol/L (136-145); UREA NITROGEN, BLOOD 8 mg/dL (7-18)
[2022-01-31 12:53] LABS: GLOMERULAR FILTR. RATE CALC > 60 mL/min (>60)
[2022-01-31] MEDS ORDERED: LORA10TA7 PO (12:55)
[2022-01-31] MEDS ORDERED: QUET200T PO (12:55)
[2022-01-31] MEDS ORDERED: FLUT16H NASAL (12:55)
[2022-01-31] MEDS ORDERED: ATOR20TA65 PO (12:55)
[2022-01-31 12:59] LABS: ALANINE AMINOTRANSFERASE 23 U/L (12-78); ALKALINE PHOSPHATASE 82 U/L (46-116); ASPARTATE AMINOTRANSFERASE 9 U/L (15-37); BILIRUBIN,TOTAL 0.4 mg/dL (0.1-1.0); VALPROIC ACID 61 mcg/mL (50-100)
[2022-01-31] MEDS ORDERED: LORazepam 1 MG TABLET PO ONE (13:00)
[2022-01-31] MEDS ORDERED: HALOPERIDOL 5 MG TABLET PO ONE (13:00)
[2022-01-31 13:19] LABS: COVID AG,FIA SOURCE NASOPHARYNGEAL
[2022-01-31 13:28] LABS: AMPHET/METH SCREEN,URINE NEGATIVE (NEGATIVE); BARBITURATE SCREEN, URINE NEGATIVE (NEGATIVE); BENZODIAZEPINES SCREEN,URINE NEGATIVE (NEGATIVE); CANNABINOID SCREEN,URINE NEGATIVE (NEGATIVE); COCAINE SCREEN,URINE NEGATIVE (NEGATIVE); METHADONE SCREEN, URINE NEGATIVE (NEGATIVE); OPIATE SCREEN,URINE NEGATIVE (NEGATIVE); PHENCYCLIDINE SCREEN,URINE NEGATIVE (NEGATIVE)
[2022-01-31 15:18] VITALS: BP 131/89
== END 2022-01-31 16:25 | disposition home or self-care (01) ==
LOC: EMS 10:50
DX: F20.9 Schizophrenia, unspecified (principal); E11.9 Type 2 diabetes mellitus without complications; Z88.1 Allergy status to other antibiotic agents; Z91.010 Allergy to peanuts; Z79.899 Other long term (current) drug therapy; Z20.822 Contact with and (suspected) exposure to COVID-19
CPT/HCPCS: 99284; 87426; 80053; 80164; 85025; 36415; 80307; G0480

== ENCOUNTER 2022-03-02 03:02 | Emergency (ER) | payer OTHER ==
[~2022-03-02] VITALS: Ht 177.8 cm; Wt 77.3 kg
[~2022-03-02 03:02] MED LIST changes: +ATOR20TA65 PO; +FAMO20 PO; +FLUT16H NASAL; +LORA10TA7 PO; +QUET200T PO; -QUET200T30 PO; +TRAZ-252 PO
[2022-03-02 03:56] VITALS: BP 114/71
== END 2022-03-02 04:52 | disposition home or self-care (01) ==
LOC: EMS 03:03
DX: K21.9 Gastro-esophageal reflux disease without esophagitis (principal); F32.A Depression, unspecified; E11.9 Type 2 diabetes mellitus without complications; F20.9 Schizophrenia, unspecified; F22 Delusional disorders; Z87.19 Personal history of other diseases of the digestive system; Z88.1 Allergy status to other antibiotic agents; Z91.010 Allergy to peanuts; Z91.014 Allergy to mammalian meats
CPT/HCPCS: 99281; Z7502

== ENCOUNTER 2022-03-28 12:41 | Emergency (ER) | payer OTHER ==
[~2022-03-28] VITALS: Ht 175.3 cm; Wt 70.5 kg
[2022-03-28 12:48] VITALS: BP 123/80
[2022-03-28 13:00] LABS: COVID AG,FIA SOURCE NASAL SWAB
[2022-03-28] MEDS ORDERED: GuaiFENesin/D-METHORPHAN [SUGAR-FREE] 200-20MG/10 ML SYRUP UDCUP PO ONE (13:00)
[2022-03-28] MEDS ORDERED: ONDANSETRON HCL 4 MG TABLET PO ONE (13:00)
[2022-03-28] MEDS ORDERED: ACETAMINOPHEN 500 MG TABLET PO ONE (13:00)
[2022-03-28 13:18] LABS: INFLUENZA TYPE A NEGATIVE FOR TYPE A (NEGATIVE); INFLUENZA TYPE B NEGATIVE FOR TYPE B (NEGATIVE)
[2022-03-28] MEDS ORDERED: ACET-66 PO (13:26)
[2022-03-28] MEDS ORDERED: ONDA-104 PO (13:26)
[2022-03-28] MEDS ORDERED: GUAIFDM PO (13:26)
== END 2022-03-28 13:43 | disposition home or self-care (01) ==
LOC: EMS 12:43
DX: J06.9 Acute upper respiratory infection, unspecified (principal); F32.A Depression, unspecified; E11.9 Type 2 diabetes mellitus without complications; F20.9 Schizophrenia, unspecified; F22 Delusional disorders; Z87.19 Personal history of other diseases of the digestive system; Z88.1 Allergy status to other antibiotic agents; Z91.010 Allergy to peanuts; Z91.014 Allergy to mammalian meats; Z20.822 Contact with and (suspected) exposure to COVID-19
CPT/HCPCS: 99284; 87426; 87804; Q0162

== ENCOUNTER 2022-03-29 14:08 | Emergency (ER) | payer OTHER ==
[~2022-03-29] VITALS: Ht 177.8 cm; Wt 77.3 kg
[~2022-03-29 14:08] MED LIST changes: +ACET-66 PO; -ATOR20TA65 PO; +GUAIFDM PO; +ONDA-104 PO; -TRAZ-252 PO
[2022-03-29 14:25] VITALS: BP 120/78
== END 2022-03-29 14:38 | disposition left against medical advice (07) ==
LOC: EMS 14:08
DX: Z53.21 Procedure and treatment not carried out due to patient leaving prior to being seen by health care provider (principal)

== ENCOUNTER 2022-04-24 13:47 | Emergency (ER) | payer OTHER ==
[~2022-04-24] VITALS: Ht 175.3 cm; Wt 77.3 kg
[~2022-04-24 13:47] MED LIST changes: -DIVA-112 PO
[2022-04-24 14:06] VITALS: BP 140/82
== END 2022-04-24 15:08 | disposition home or self-care (01) ==
LOC: EMS 13:52
DX: R14.0 Abdominal distension (gaseous) (principal); F32.9 Major depressive disorder, single episode, unspecified; E11.9 Type 2 diabetes mellitus without complications; K21.9 Gastro-esophageal reflux disease without esophagitis; F20.9 Schizophrenia, unspecified; F22 Delusional disorders; Z91.010 Allergy to peanuts; Z88.1 Allergy status to other antibiotic agents; Z91.014 Allergy to mammalian meats
CPT/HCPCS: 99282; Z7502

== ENCOUNTER 2022-06-05 08:11 | Emergency (ER) | payer OTHER ==
[~2022-06-05] VITALS: Ht 180.3 cm; Wt 77.3 kg
[~2022-06-05 08:11] MED LIST changes: -FLUT16H NASAL; +FLUT16SP NASAL
[2022-06-05] MEDS ORDERED: DIPH25CA85 PO (08:23)
[2022-06-05] MEDS ORDERED: ACETAMINOPHEN 500 MG TABLET PO ONE (08:45)
[2022-06-05 08:50] VITALS: BP 133/86
== END 2022-06-05 08:51 | disposition home or self-care (01) ==
LOC: EMS 08:11
DX: K12.0 Recurrent oral aphthae (principal); F32.A Depression, unspecified; E11.9 Type 2 diabetes mellitus without complications; F20.9 Schizophrenia, unspecified; Z91.010 Allergy to peanuts; Z91.018 Allergy to other foods
CPT/HCPCS: 99282; Z7502; Z7610

== ENCOUNTER 2022-07-23 00:49 | Emergency (ER) | payer OTHER ==
[~2022-07-23] VITALS: Ht 177.8 cm; Wt 79.5 kg
[~2022-07-23 00:49] MED LIST changes: -ACET-66 PO; +DIPH25CA85 PO; -GUAIFDM PO; -ONDA-104 PO
[2022-07-23] MEDS ORDERED: SENN-187 PO (03:15)
[2022-07-23 03:26] VITALS: BP 112/72
[2022-07-23 14:21] LABS: GLUCOMETER DEV NAME(LOC) ERT.5; GLUCOSE,POINT OF CARE 94 MG/DL (70-110)
== END 2022-07-23 03:35 | disposition home or self-care (01) ==
LOC: EMS 00:50
DX: F22 Delusional disorders (principal); K59.00 Constipation, unspecified; E11.9 Type 2 diabetes mellitus without complications; F20.9 Schizophrenia, unspecified; F32.9 Major depressive disorder, single episode, unspecified; K21.9 Gastro-esophageal reflux disease without esophagitis; Z88.0 Allergy status to penicillin
CPT/HCPCS: 82962; 99282

== ENCOUNTER 2022-08-16 02:41 | Emergency (ER) | payer OTHER ==
[~2022-08-16] VITALS: Ht 177.8 cm; Wt 79.0 kg
[~2022-08-16 02:41] MED LIST changes: +SENN-187 PO
[2022-08-16 03:33] VITALS: BP 99/64
[2022-08-16 03:38] LABS: COVID AG,FIA SOURCE NASAL SWAB
[2022-08-16 03:57] LABS: INFLUENZA TYPE A NEGATIVE FOR TYPE A (NEGATIVE); INFLUENZA TYPE B NEGATIVE FOR TYPE B (NEGATIVE)
[2022-08-16] MEDS ORDERED: LORATADINE 10 MG TABLET PO ONE (04:00)
== END 2022-08-16 04:15 | disposition home or self-care (01) ==
LOC: EMS 02:44
DX: J34.89 Other specified disorders of nose and nasal sinuses (principal); F32.A Depression, unspecified; E11.9 Type 2 diabetes mellitus without complications; F20.9 Schizophrenia, unspecified; Z20.822 Contact with and (suspected) exposure to COVID-19
CPT/HCPCS: 82962; 87804; 99283

== ENCOUNTER 2022-08-23 20:44 | Emergency (ER) | payer MEDICARE, OTHER ==
[~2022-08-23] VITALS: Ht 177.8 cm; Wt 80.9 kg
[2022-08-23 21:54] LABS: AMPHET/METH SCREEN,URINE NEGATIVE (NEGATIVE); BARBITURATE SCREEN, URINE NEGATIVE (NEGATIVE); BENZODIAZEPINES SCREEN,URINE NEGATIVE (NEGATIVE); CANNABINOID SCREEN,URINE NEGATIVE (NEGATIVE); COCAINE SCREEN,URINE NEGATIVE (NEGATIVE); METHADONE SCREEN, URINE NEGATIVE (NEGATIVE); OPIATE SCREEN,URINE NEGATIVE (NEGATIVE)
[2022-08-23 21:56] LABS: PHENCYCLIDINE SCREEN,URINE NEGATIVE (NEGATIVE)
[2022-08-23] MEDS ORDERED: PB/HYOSCY/ATR/SCOP/LIDO/MAALOX 55 ML BOTTLE PO ONE (22:15)
[2022-08-24 00:16] VITALS: BP 124/71
== END 2022-08-24 00:28 | disposition home or self-care (01) ==
LOC: EMS 20:48
DX: K21.9 Gastro-esophageal reflux disease without esophagitis (principal); F32.A Depression, unspecified; E11.9 Type 2 diabetes mellitus without complications; F20.9 Schizophrenia, unspecified; Z88.8 Allergy status to other drugs, medicaments and biological substances; Z91.018 Allergy to other foods; Z91.010 Allergy to peanuts
CPT/HCPCS: 80307; 93005; 99284

== ENCOUNTER 2022-09-02 12:44 | Emergency (ER) | payer OTHER ==
[~2022-09-02] VITALS: Ht 175.3 cm; Wt 77.3 kg
[2022-09-02 12:48] VITALS: BP 152/97
[2022-09-02 14:31] LABS: AMPHET/METH SCREEN,URINE NEGATIVE (NEGATIVE); BARBITURATE SCREEN, URINE NEGATIVE (NEGATIVE); BENZODIAZEPINES SCREEN,URINE NEGATIVE (NEGATIVE); CANNABINOID SCREEN,URINE NEGATIVE (NEGATIVE); COCAINE SCREEN,URINE NEGATIVE (NEGATIVE); METHADONE SCREEN, URINE NEGATIVE (NEGATIVE)
[2022-09-02 14:32] LABS: OPIATE SCREEN,URINE NEGATIVE (NEGATIVE); PHENCYCLIDINE SCREEN,URINE NEGATIVE (NEGATIVE)
[2022-09-02 15:14] LABS: BASOPHILS % (AUTO) 0.6 % (0.0-2.0); EOSINOPHILS % (AUTO) 4.1 % (1.0-6.0); HEMATOCRIT 44.9 % (41-53); HEMOGLOBIN 15.2 g/dL (13.5-17.5); LYMPHOCYTES # (AUTO) 0.9 K/uL (1.0-4.8); LYMPHOCYTES % (AUTO) 16.2 % (22.0-44.0); MEAN CORPUSCULAR HEMOGLOBIN 30.6 pg (26.0-34.0); MEAN CORPUSCULAR HGB CONC 33.9 G/dL (31.0-37.0); MEAN CORPUSCULAR VOLUME 90 fL (80-100); MONOCYTES # (AUTO) 0.6 K/uL (0.1-1.0); MONOCYTES % (AUTO) 10.6 % (2.0-9.0); NEUTROPHILS # (AUTO) 3.7 K/uL (1.8-7.7); NEUTROPHILS % (AUTO) 68.5 % (40.0-70.0); PLATELET COUNT (AUTO) 202 K/uL (150-450); RED BLOOD CELL COUNT(AUTO) 4.98 MIL/uL (4.50-5.90); RED CELL DISTRIBUTION WIDTH 12.7 % (11.5-14.5)
[2022-09-02 15:21] LABS: ANION GAP 10 mmol/L (8-16); CARBON DIOXIDE 26 mmol/L (22-29); CHLORIDE 101 mmol/L (98-107); CREATININE 0.79 mg/dL (0.60-1.30); GLOMERULAR FILTR. RATE CALC > 60 mL/min (>60); GLUCOSE,RANDOM 90 mg/dL (70-110); POTASSIUM 3.9 mmol/L (3.5-5.1); SODIUM SERUM 137 mmol/L (136-145); UREA NITROGEN, BLOOD 13 mg/dL (7-18)
[2022-09-02 15:24] LABS: ALANINE AMINOTRANSFERASE 26 U/L (12-78); ALBUMIN 4.2 g/dL (3.4-5.0); ALKALINE PHOSPHATASE 92 U/L (46-116); ASPARTATE AMINOTRANSFERASE 17 U/L (15-37); BILIRUBIN,TOTAL 0.7 mg/dL (0.1-1.0); TOTAL PROTEIN, SERUM 7.4 g/dL (6.4-8.2)
== END 2022-09-02 15:37 | disposition home or self-care (01) ==
LOC: EMS 12:44
DX: F20.9 Schizophrenia, unspecified (principal); F32.A Depression, unspecified; E11.9 Type 2 diabetes mellitus without complications; F22 Delusional disorders; Z91.010 Allergy to peanuts; Z91.018 Allergy to other foods; Z88.8 Allergy status to other drugs, medicaments and biological substances
CPT/HCPCS: 99283; 80053; 85025; 36415; 80307 ×2; G0480

== ENCOUNTER 2022-10-11 15:41 | Emergency (ER) | payer OTHER ==
[~2022-10-11] VITALS: Ht 177.8 cm; Wt 72.7 kg
[2022-10-11 17:20] LABS: BASOPHILS % (AUTO) 0.7 % (0.0-2.0); EOSINOPHILS % (AUTO) 0.5 % (1.0-6.0); HEMATOCRIT 47.1 % (41-53); HEMOGLOBIN 16.1 g/dL (13.5-17.5); LYMPHOCYTES # (AUTO) 1.2 K/uL (1.0-4.8); LYMPHOCYTES % (AUTO) 24.3 % (22.0-44.0); MEAN CORPUSCULAR HEMOGLOBIN 30.5 pg (26.0-34.0); MEAN CORPUSCULAR HGB CONC 34.1 G/dL (31.0-37.0); MEAN CORPUSCULAR VOLUME 89 fL (80-100); MONOCYTES # (AUTO) 0.3 K/uL (0.1-1.0); MONOCYTES % (AUTO) 5.3 % (2.0-9.0); NEUTROPHILS # (AUTO) 3.5 K/uL (1.8-7.7); NEUTROPHILS % (AUTO) 69.2 % (40.0-70.0); PLATELET COUNT (AUTO) 192 K/uL (150-450); RED BLOOD CELL COUNT(AUTO) 5.27 MIL/uL (4.50-5.90); RED CELL DISTRIBUTION WIDTH 12.8 % (11.5-14.5)
[2022-10-11 17:41] LABS: ANION GAP 8 mmol/L (8-16); CALCIUM, TOTAL 9.5 mg/dL (8.8-10.5); CARBON DIOXIDE 30 mmol/L (22-29); CHLORIDE 103 mmol/L (98-107); GLOMERULAR FILTR. RATE CALC > 60 mL/min (>60); GLUCOSE,RANDOM 89 mg/dL (70-110); POTASSIUM 4.1 mmol/L (3.5-5.1); SODIUM SERUM 141 mmol/L (136-145); UREA NITROGEN, BLOOD 9 mg/dL (7-18)
[2022-10-11 17:47] LABS: ALANINE AMINOTRANSFERASE 17 U/L (12-78); ALBUMIN 4.6 g/dL (3.4-5.0); ALKALINE PHOSPHATASE 82 U/L (46-116); ASPARTATE AMINOTRANSFERASE 13 U/L (15-37); BILIRUBIN,TOTAL 0.9 mg/dL (0.1-1.0); LIPASE 102 U/L (73-393); TOTAL PROTEIN, SERUM 7.6 g/dL (6.4-8.2)
[2022-10-11] MEDS ORDERED: FAMOTIDINE 40 MG in SODIUM CHLORIDE 0.9% 100 ML IV ONE (19:15)
[2022-10-11 21:52] VITALS: BP 130/80
[2022-10-11] MEDS ORDERED: FAMO20 PO (21:52)
== END 2022-10-11 22:03 | disposition home or self-care (01) ==
LOC: EMS 15:45
DX: R10.13 Epigastric pain (principal); F32.A Depression, unspecified; E11.9 Type 2 diabetes mellitus without complications; F20.9 Schizophrenia, unspecified
CPT/HCPCS: 99284; 96365; 80053; 83690; 85025; 36415; 93005; J3490; J7050

== ENCOUNTER 2023-06-12 11:22 | Emergency (ER) | payer OTHER ==
[~2023-06-12] VITALS: Ht 177.8 cm; Wt 75.0 kg
[~2023-06-12 11:22] MED LIST changes: -SENN-187 PO; +SENN-376 PO
[2023-06-12 11:24] VITALS: TEMP 98.2
[2023-06-12 11:49] VITALS: BP 148/88; PULSE 90; RESP 18
[2023-06-12] MEDS ORDERED: LORazepam 1 MG TABLET PO ONE (12:00)
== END 2023-06-12 12:04 | disposition home or self-care (01) ==
LOC: EMS 11:31
DX: F41.9 Anxiety disorder, unspecified (principal); J30.2 Other seasonal allergic rhinitis; F32.A Depression, unspecified; E11.9 Type 2 diabetes mellitus without complications; F20.9 Schizophrenia, unspecified; Z91.010 Allergy to peanuts; Z88.8 Allergy status to other drugs, medicaments and biological substances; Z91.018 Allergy to other foods
CPT/HCPCS: 82962; 99283

== ENCOUNTER 2023-06-12 22:06 | Emergency (ER) | payer OTHER ==
[~2023-06-12] VITALS: Ht 177.8 cm; Wt 84.0 kg
[2023-06-12 22:13] VITALS: BP 111/79; PULSE 94; RESP 20; TEMP 98.6
[2023-06-12] MEDS ORDERED: PB/HYOSCY/ATR/SCOP/LIDO/MAALOX 55 ML BOTTLE PO ONE (23:30)
[2023-06-14] MEDS ORDERED: MELA3TAB89 PO (13:23)
== END 2023-06-13 00:38 | disposition home or self-care (01) ==
LOC: EMS 22:07
DX: K21.9 Gastro-esophageal reflux disease without esophagitis (principal); F32.A Depression, unspecified; E11.9 Type 2 diabetes mellitus without complications; F20.9 Schizophrenia, unspecified; Z91.010 Allergy to peanuts; Z91.018 Allergy to other foods; Z88.8 Allergy status to other drugs, medicaments and biological substances
CPT/HCPCS: 99283

== ENCOUNTER 2023-06-14 11:07 | Emergency (ER) | payer OTHER ==
[~2023-06-14] VITALS: Ht 177.8 cm; Wt 81.8 kg
[2023-06-14 11:42] VITALS: BP 137/91; PULSE 93; RESP 16; TEMP 98.3
[2023-06-14] MEDS ORDERED: MELA3TAB89 PO (13:23)
== END 2023-06-14 13:46 | disposition home or self-care (01) ==
LOC: EMS 11:07
DX: G47.00 Insomnia, unspecified (principal); F32.A Depression, unspecified; E11.9 Type 2 diabetes mellitus without complications; F20.9 Schizophrenia, unspecified; Z91.010 Allergy to peanuts; Z88.8 Allergy status to other drugs, medicaments and biological substances
CPT/HCPCS: 99282; Z7502

== ENCOUNTER 2023-06-16 14:07 | Emergency (ER) | payer OTHER ==
[~2023-06-16] VITALS: Ht 175.3 cm; Wt 77.3 kg
[~2023-06-16 14:07] MED LIST changes: +MELA3TAB89 PO
[2023-06-16 14:21] VITALS: TEMP 97.9
[2023-06-16 15:18] VITALS: BP 151/92; PULSE 92; RESP 17
[2023-06-16] MEDS ORDERED: QUET100T PO (15:37)
== END 2023-06-16 15:51 | disposition home or self-care (01) ==
LOC: EMS 14:07
DX: G47.00 Insomnia, unspecified (principal); K21.9 Gastro-esophageal reflux disease without esophagitis; F20.9 Schizophrenia, unspecified; E11.9 Type 2 diabetes mellitus without complications; F32.A Depression, unspecified; Z88.0 Allergy status to penicillin; Z91.010 Allergy to peanuts
CPT/HCPCS: 99283; Z7502

== ENCOUNTER 2023-06-23 10:56 | Emergency (ER) | payer OTHER ==
[~2023-06-23] VITALS: Ht 175.3 cm; Wt 75.0 kg
[~2023-06-23 10:56] MED LIST changes: +QUET100T PO
[2023-06-23 10:59] VITALS: TEMP 98
[2023-06-23] MEDS ORDERED: HYDR28.35 TP (12:24)
[2023-06-23] MEDS: FAMOTIDINE 20 MG TABLET PO ONE ×2 (12:32→12:34)
[2023-06-23] MEDS ORDERED: LORazepam 1 MG TABLET PO ONE (12:45)
[2023-06-23 13:32] VITALS: BP 132/79; PULSE 104; RESP 18
== END 2023-06-23 13:45 | disposition home or self-care (01) ==
LOC: EMS 10:56
DX: L20.9 Atopic dermatitis, unspecified (principal); F41.9 Anxiety disorder, unspecified; F32.A Depression, unspecified; Z88.8 Allergy status to other drugs, medicaments and biological substances; Z91.010 Allergy to peanuts
CPT/HCPCS: 99283

== ENCOUNTER 2024-03-19 10:04 | Emergency (ER) | payer MEDICARE, MEDICAID ==
[~2024-03-19] VITALS: Ht 177.8 cm; Wt 80.9 kg
[~2024-03-19 10:04] MED LIST changes: +HYDR28.35 TP
[2024-03-19] MEDS ORDERED: RISP3TAB77 PO (10:15)
[2024-03-19 10:17] VITALS: TEMP 98.2
[2024-03-19 11:07] LABS: EOSINOPHILS % (AUTO) 1.1 % (1.0-6.0); HEMATOCRIT 42.1 % (41-53); HEMOGLOBIN 14.2 g/dL (13.5-17.5); LYMPHOCYTES # (AUTO) 1.2 K/uL (1.0-4.8); LYMPHOCYTES % (AUTO) 19.8 % (22.0-44.0); MEAN CORPUSCULAR HEMOGLOBIN 31.1 pg (26.0-34.0); MEAN CORPUSCULAR HGB CONC 33.7 G/dL (31.0-37.0); MEAN CORPUSCULAR VOLUME 92 fL (80-100); MONOCYTES # (AUTO) 0.4 K/uL (0.1-1.0); MONOCYTES % (AUTO) 6.2 % (2.0-9.0); NEUTROPHILS # (AUTO) 4.2 K/uL (1.8-7.7); NEUTROPHILS % (AUTO) 71.9 % (40.0-70.0); PLATELET COUNT (AUTO) 197 K/uL (150-450); RED BLOOD CELL COUNT(AUTO) 4.56 MIL/uL (4.50-5.90); RED CELL DISTRIBUTION WIDTH 13.2 % (11.5-14.5); WHITE BLOOD COUNT (AUTO) 5.9 K/uL (4.5-11.0)
[2024-03-19 11:15] LABS: ANION GAP 11 mmol/L (8-16); CALCIUM, TOTAL 8.4 mg/dL (8.8-10.5); CARBON DIOXIDE 24 mmol/L (22-29); CHLORIDE 105 mmol/L (98-107); CREATININE 0.74 mg/dL (0.60-1.30); GLOMERULAR FILTR. RATE CALC > 60 mL/min (>60); GLUCOSE,RANDOM 107 mg/dL (70-110); POTASSIUM 3.6 mmol/L (3.5-5.1); SODIUM SERUM 140 mmol/L (136-145); UREA NITROGEN, BLOOD 6 mg/dL (7-18)
[2024-03-19 11:22] LABS: ALANINE AMINOTRANSFERASE 22 U/L (12-78); ALBUMIN 3.5 g/dL (3.4-5.0); ALKALINE PHOSPHATASE 71 U/L (46-116); ASPARTATE AMINOTRANSFERASE 15 U/L (15-37); BILIRUBIN,TOTAL 0.6 mg/dL (0.1-1.0); TOTAL PROTEIN, SERUM 6.1 g/dL (6.4-8.2)
[2024-03-19 11:23] LABS: TROPONIN I-HIGH SENSITIVITY 5 ng/L (<76)
[2024-03-19 12:10] VITALS: BP 119/76; PULSE 81; RESP 16; O2SAT 97
[2024-03-19 12:29] LABS: APPEARANCE,URINE CLEAR (CLEAR); BILIRUBIN,URINE NEGATIVE (NEGATIVE); COLOR,URINE LIGHT YELLOW (YELLOW); GLUCOSE, URINE (UA) NEGATIVE (NEGATIVE); KETONES,URINE NEGATIVE (NEGATIVE); LEUKOCYTE ESTERASE ,URINE NEGATIVE (NEGATIVE); NITRATE,URINE NEGATIVE (NEGATIVE); OCCULT BLOOD,URINE NEGATIVE (NEGATIVE); PROTEIN,URINE NEGATIVE (NEGATIVE); SPECIFIC GRAVITIY, URINE 1.012 (1.003-1.030); UROBILINOGEN,URINE <=1.0 mg/dL (<=1.0)
== END 2024-03-19 12:17 | disposition home or self-care (01) ==
LOC: EMS 10:04
DX: F20.9 Schizophrenia, unspecified (principal); R42 Dizziness and giddiness; F32.A Depression, unspecified; E11.9 Type 2 diabetes mellitus without complications; Z91.010 Allergy to peanuts; Z88.8 Allergy status to other drugs, medicaments and biological substances
CPT/HCPCS: 71045; 80053; 81003; 84484; 85025; 93005; 99285; 36415-L1; 36415-TC

== ENCOUNTER 2024-05-27 07:26 | Emergency (ER) | payer MEDICARE, MEDICAID ==
[~2024-05-27] VITALS: Ht 177.8 cm; Wt 81.8 kg
[~2024-05-27 07:26] MED LIST changes: +RISP3TAB77 PO
[2024-05-27 07:30] VITALS: BP 139/84; PULSE 93; RESP 18; TEMP 98.6; O2SAT 100
[2024-05-27] MEDS ORDERED: QUET50TA24 PO (07:34)
[2024-05-27] MEDS ORDERED: FAMO20TA8 PO (07:34)
[2024-05-27] MEDS ORDERED: RISP3TAB35 PO (07:34)
[2024-05-27 07:46] LABS: COVID AG,FIA SOURCE NASAL SWAB
[2024-05-27 08:27] LABS: SARS-COV2 (COVID) ANTIGEN,FIA Negative (Negative)
[2024-05-27 08:29] LABS: INFLUENZA TYPE A NEGATIVE FOR TYPE A (NEGATIVE); INFLUENZA TYPE B NEGATIVE FOR TYPE B (NEGATIVE)
[2024-05-27] MEDS ORDERED: PSEU-191 PO (08:45)
[2024-05-27] MEDS ORDERED: GUAIFDM PO (08:45)
[2024-05-27] MEDS ORDERED: ACET-66 PO (08:45)
[2024-05-27] MEDS: PSEUDOEPHEDRINE HCL 30 MG TABLET PO ONE (09:12)
[2024-05-27] MEDS: GuaiFENesin/D-METHORPHAN [SUGAR-FREE] 200-20MG/10 ML SYRUP UDCUP PO ONE (09:12)
[2024-05-27] MEDS: ACETAMINOPHEN 500 MG TABLET PO ONE (09:12)
== END 2024-05-27 09:19 | disposition home or self-care (01) ==
LOC: EMS 07:29
DX: J06.9 Acute upper respiratory infection, unspecified (principal); F20.9 Schizophrenia, unspecified; F32.A Depression, unspecified; K21.9 Gastro-esophageal reflux disease without esophagitis; Z88.0 Allergy status to penicillin; Z20.822 Contact with and (suspected) exposure to COVID-19
CPT/HCPCS: 87804; 99284; Z7502; Z7610

== ENCOUNTER 2024-06-14 12:43 | Emergency (ER) | payer MEDICARE, MEDICAID ==
[~2024-06-14] VITALS: Ht 175.3 cm; Wt 75.0 kg
[~2024-06-14 12:43] MED LIST changes: +ACET-66 PO; -DIPH25CA85 PO; -FAMO20 PO; +FAMO20TA8 PO; -FLUT16SP NASAL; +GUAIFDM PO; -HYDR28.35 TP; -LORA10TA7 PO; -MELA3TAB89 PO; +PSEU-191 PO; -QUET100T PO; -QUET200T PO; +QUET50TA24 PO; +RISP3TAB35 PO; -RISP3TAB77 PO; -SENN-376 PO
[2024-06-14 12:48] VITALS: BP 124/81; PULSE 92; RESP 18; TEMP 98.5; O2SAT 99
== END 2024-06-14 14:20 | disposition left against medical advice (07) ==
LOC: EMS 12:49
DX: G47.00 Insomnia, unspecified (principal); Z53.21 Procedure and treatment not carried out due to patient leaving prior to being seen by health care provider
CPT/HCPCS: 82962

== ENCOUNTER 2025-04-28 01:48 | Emergency (ER) | payer MEDICARE, MEDICAID ==
[~2025-04-28] VITALS: Ht 177.8 cm; Wt 80.9 kg
[~2025-04-28 01:48] MED LIST changes: -ACET-66 PO; -FAMO20TA8 PO; -GUAIFDM PO; -PSEU-191 PO; -QUET50TA24 PO
[2025-04-28 02:36] VITALS: TEMP 98.5
[2025-04-28 03:16] VITALS: BP 131/75; PULSE 76; RESP 18; O2SAT 97
[2025-04-28] MEDS: PB/HYOSCY/ATR/SCOP/LIDO/MAALOX 55 ML BOTTLE PO ONE (03:31)
== END 2025-04-28 04:16 | disposition home or self-care (01) ==
LOC: EMS 01:49
DX: K21.9 Gastro-esophageal reflux disease without esophagitis (principal); E11.9 Type 2 diabetes mellitus without complications; F20.9 Schizophrenia, unspecified; F32.A Depression, unspecified; Z88.0 Allergy status to penicillin; Z91.010 Allergy to peanuts; Z79.899 Other long term (current) drug therapy
CPT/HCPCS: 99283

== ENCOUNTER 2025-06-05 19:44 | Inpatient (IN) | payer MEDICARE, MEDICAID ==
[~2025-06-05] VITALS: Ht 177.8 cm; Wt 82.6 kg
[2025-06-05 21:05] LABS: GLUCOMETER DEV NAME(LOC) POC.BV; POC SARS-COV2 AG, FIA NEGATIVE (NEGATIVE)
[2025-06-05 21:24] VITALS: BP 132/91; PULSE 86; RESP 18; TEMP 98.2; O2SAT 98
[2025-06-05 22:21] LABS: GLUCOMETER DEV NAME(LOC) BV2S.; GLUCOSE,POINT OF CARE 95 MG/DL (70-110)
[2025-06-06] MEDS: ZOLPIDEM TARTRATE 10 MG TABLET PO PRN (00:13)
[2025-06-06] MEDS ORDERED: PETROLATUM,WHITE 28 GM JELLY TP PRN (07:00)
[2025-06-06] MEDS ORDERED: DOCUSATE SODIUM 100 MG CAPSULE PO PRN (07:00)
[2025-06-06] MEDS ORDERED: ALBUTEROL SULFATE HFA 90 MCG/PUFF 8 GM INHALER IH PRN (07:00)
[2025-06-06] MEDS ORDERED: MAGNESIUM HYDROXIDE SUSPENSION 30 ML UDCUP PO PRN (07:00)
[2025-06-06] MEDS ORDERED: IBUPROFEN 400 MG TABLET PO PRN (07:00)
[2025-06-06] MEDS ORDERED: GuaiFENesin/D-METHORPHAN [SUGAR-FREE] 200-20MG/10 ML SYRUP UDCUP PO PRN (07:00)
[2025-06-06] MEDS ORDERED: NICOTINE 14 MG/24 HOUR PATCH TD PRN (07:00)
[2025-06-06 08:39] VITALS: BP 148/88; PULSE 114; RESP 18; TEMP 98.1; O2SAT 95
[2025-06-06] MEDS: INFLUENZA VIRUS VACCINE TVS (6MO+) 2025-26/PF 45 MCG/0.5 ML SYRINGE IM. ONE (08:47)
[2025-06-06 09:51] LABS: PLATELET COUNT (AUTO) 187 K/uL (150-450); RED BLOOD CELL COUNT(AUTO) 5.01 MIL/uL (4.50-5.90); RED CELL DISTRIBUTION WIDTH 13.5 % (11.5-14.5); WHITE BLOOD COUNT (AUTO) 6.2 K/uL (4.5-11.0)
[2025-06-06 10:17] LABS: ASPARTATE AMINOTRANSFERASE 26 U/L (15-37); CALCIUM, TOTAL 9.5 mg/dL (8.8-10.5); CHOL/HDL RATIO 4.4 (4.2-7.3); CREATININE 0.81 mg/dL (0.60-1.30); GLOMERULAR FILTR. RATE CALC > 60 mL/min (>60); GLUCOSE,RANDOM 83 mg/dL (70-110); LDL CHOL (CALC.) 169 mg/dL (0-130); SODIUM SERUM 141 mmol/L (136-145); TOTAL PROTEIN, SERUM 7.2 g/dL (6.4-8.2); UREA NITROGEN, BLOOD 16 mg/dL (7-18)
[2025-06-06] MEDS: MAG HYDROX/ALUMINUM HYD/SIMETH ES 30 ML SUSPENSION UDCUP PO PRN (12:26)
[2025-06-06] MEDS: ONDANSETRON 4 MG TABLET PO PRN (12:26)
[2025-06-06] MEDS: RisperiDONE ER SUSPENSION 125 MG/0.35 ML PRE-FILLED SYRINGE SQ ONE (17:28)
[2025-06-06 20:31] VITALS: BP 135/76; PULSE 96; RESP 18; TEMP 97.6; O2SAT 98
[2025-06-07] MEDS: FAMOTIDINE 20 MG TABLET PO SCH (06:24)
[2025-06-07] MEDS: ATORVASTATIN CALCIUM 10 MG TABLET PO SCH (08:17)
[2025-06-07 08:29] LABS: PLATELET COUNT (AUTO) 212 K/uL (150-450); RED BLOOD CELL COUNT(AUTO) 5.19 MIL/uL (4.50-5.90); RED CELL DISTRIBUTION WIDTH 13.3 % (11.5-14.5); WHITE BLOOD COUNT (AUTO) 6.1 K/uL (4.5-11.0)
[2025-06-07 08:35] LABS: APPEARANCE,URINE CLEAR (CLEAR); GLUCOSE, URINE (UA) NEGATIVE (NEGATIVE); LEUKOCYTE ESTERASE ,URINE NEGATIVE (NEGATIVE); NITRATE,URINE NEGATIVE (NEGATIVE); OCCULT BLOOD,URINE NEGATIVE (NEGATIVE); PH,URINE DRUG SCREEN 6.0 (5.0-8.0); SPECIFIC GRAVITIY, URINE 1.017 (1.003-1.030)
[2025-06-07 08:36] VITALS: BP 108/77; PULSE 100; RESP 18; TEMP 97.9; O2SAT 98
[2025-06-07 08:46] LABS: ALCOHOL, URINE DRUG SCREEN NEGATIVE (NEGATIVE); AMPHET/METH SCREEN,URINE NEGATIVE (NEGATIVE); BARBITURATE SCREEN, URINE NEGATIVE (NEGATIVE); CANNABINOID SCREEN,URINE NEGATIVE (NEGATIVE); COCAINE SCREEN,URINE NEGATIVE (NEGATIVE); METHADONE SCREEN, URINE NEGATIVE (NEGATIVE)
[2025-06-07 08:59] LABS: ASPARTATE AMINOTRANSFERASE 28 U/L (15-37); CALCIUM, TOTAL 9.4 mg/dL (8.8-10.5); CHOL/HDL RATIO 4.4 (4.2-7.3); CREATININE 0.84 mg/dL (0.60-1.30); GLOMERULAR FILTR. RATE CALC > 60 mL/min (>60); GLUCOSE,RANDOM 102 mg/dL (70-110); LDL CHOL (CALC.) 180 mg/dL (0-130); SODIUM SERUM 139 mmol/L (136-145); TOTAL PROTEIN, SERUM 7.3 g/dL (6.4-8.2); UREA NITROGEN, BLOOD 15 mg/dL (7-18)
[2025-06-07 13:08] VITALS: RESP 17
[2025-06-07] MEDS: ACETAMINOPHEN 325 MG TABLET PO PRN (13:08)
[2025-06-07 14:08] VITALS: RESP 18
[2025-06-07 20:17] VITALS: BP 121/90; PULSE 93; RESP 15; TEMP 98.1; O2SAT 98
[2025-06-08 08:44] VITALS: BP 118/78; PULSE 100; RESP 18; TEMP 98.1; O2SAT 98
[2025-06-08 20:35] VITALS: BP 133/81; PULSE 88; RESP 18; TEMP 97.8; O2SAT 99
[2025-06-09 08:25] VITALS: BP 117/79; PULSE 83; RESP 17; TEMP 97.9; O2SAT 96
[2025-06-09 20:19] VITALS: BP 135/75; PULSE 71; RESP 17; TEMP 97.8; O2SAT 98
[2025-06-10 09:08] VITALS: BP 121/84; PULSE 91; RESP 20; TEMP 98.4; O2SAT 98
[2025-06-10 20:28] VITALS: BP 146/88; PULSE 92; RESP 18; TEMP 98; O2SAT 100
[2025-06-11 08:45] VITALS: BP 137/89; PULSE 98; RESP 18; TEMP 98.6; O2SAT 98
[2025-06-11 20:28] VITALS: BP 117/79; PULSE 81; RESP 18; TEMP 98.2; O2SAT 98
[2025-06-12 08:52] VITALS: BP 124/83; PULSE 92; RESP 16; TEMP 98.2; O2SAT 99
[2025-06-12 20:46] VITALS: BP 120/76; PULSE 92; RESP 17; TEMP 98.1; O2SAT 99
[2025-06-13 08:55] VITALS: BP 129/87; PULSE 91; RESP 18; TEMP 97.5; O2SAT 98
[2025-06-13] MEDS ORDERED: QUET200T PO (11:15)
[2025-06-13] MEDS ORDERED: RISP125S SQ (11:17)
[2025-06-13] MEDS ORDERED: ATOR10TA PO (11:23)
[2025-06-13] MEDS ORDERED: FAMO20 PO (11:23)
[2025-07-06] MEDS ORDERED: RisperiDONE ER SUSPENSION 125 MG/0.35 ML PRE-FILLED SYRINGE SQ SCH (09:00)
== END 2025-06-13 13:56 | disposition home or self-care (01) | DRG 885 ==
LOC: B2S 20:38
PROVIDERS: ADMIT Psychiatry & Neurology Child & Adolescent Psychiatry; ATTEND Psychiatry & Neurology Child & Adolescent Psychiatry
PROC: GZ56ZZZ Individual Psychotherapy, Supportive (ICD-10-PCS; principal; 2025-06-06)
PROC: GZ58ZZZ Individual Psychotherapy, Cognitive-Behavioral (ICD-10-PCS; 2025-06-06)
DX: F20.0 Paranoid schizophrenia (principal); E11.9 Type 2 diabetes mellitus without complications; F19.10 Other psychoactive substance abuse, uncomplicated; Z20.822 Contact with and (suspected) exposure to COVID-19; E78.5 Hyperlipidemia, unspecified; K21.9 Gastro-esophageal reflux disease without esophagitis; F41.9 Anxiety disorder, unspecified; Z88.0 Allergy status to penicillin
CPT/HCPCS: 80053; 80061; 80307; 81003; 82962; 83036; 84436; 84443; 85025; Q0162